=== PATIENT | female | born 1935 | race Caucasian/White ===

== ENCOUNTER 2021-09-06 23:24 | Inpatient (IN) | payer MEDICARE ==
[2021-09-06] MEDS ORDERED: fentaNYL 100 MCG/2 ML SDV IVPUSH ONE (23:43)
--- NOTE | 2021-09-06 23:47 | EDM.PDOC ---
ED HPI GENERAL MEDICAL PROBLEM - General Chief Complaint: Lower Extremity Injury/Pain Stated Complaint: FALL VIA NORTH Time Seen by Provider: 09/06/21 23:38 Source of Information: Reports: Patient, Family, RN Notes Reviewed History Limitations: Reports: No Limitations - History of Present Illness INITIAL COMMENTS - FREE TEXT/NARRATIVE: 86-year-old female presents emergency department day complaint of left hip pain, she injured herself when she fell at home. 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 Left Hip Pain Score (Numeric/FACES): 10 - Related Data Allergies Allergy/AdvReac Type Severity Reaction Status Date / Time No Known Allergies Allergy Verified 09/06/21 23:31 Home Meds: Home Meds Calcium Carbonate/Vitamin D3 [Oyster Shell 500-Vit D3 200 Tb] 1 tab PO DAILY 12/27/20 [History] Cholecalciferol (Vitamin D3) [Vitamin D] 1,000 unit PO DAILY 12/27/20 [History] Citalopram [Citalopram HBr] 10 mg PO DAILY 12/27/20 [History] Pravastatin Sodium 10 mg PO DAILY 12/27/20 [History] Multivitamin [Multi-Vitamin Daily] 1 each PO DAILY 09/06/21 [History] Past Medical History Cardiovascular History: Reports: High Cholesterol 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: Musculoskeletal History: Reports: Arthritis, Other (See Below) Other Musculoskeletal History: R knee pain/weakness Psychiatric History: Reports: Anxiety Oncologic (Cancer) History: Reports: Breast - Infectious Disease History Infectious Disease History: Reports: Chicken Pox, Measles - Past Surgical History Musculoskeletal Surgical History: Reports: None Social & Family History - Tobacco Use Tobacco Use Status *Q: Never Tobacco User Second Hand Smoke Exposure: No - Caffeine Use Caffeine Use: Reports: None - Recreational Drug Use Recreational Drug Use: Yes Review of Systems - Review of Systems Review Of Systems: See Below Musculoskeletal: Reports: Joint Pain ED EXAM, GENERAL - Physical Exam Exam: See Below Free Text/Narrative:: Shortened and externally rotated she will not tolerate any type of exam or palpation over this area without eliciting pain Exam Limited By: No Limitations General Appearance: Alert, WD/WN, No Apparent Distress Course - Vital Signs Last Recorded V/S: Last Vital Signs Temp 97.5 F 09/06/21 23:26 Pulse 55 L 09/07/21 05:46 Resp 15 09/07/21 05:46 BP 107/55 L 09/07/21 05:46 Pulse Ox 94 L 09/07/21 05:46 - Orders/Labs/Meds Orders: Active Orders 24 hr Category Date Time Status Med[place] Catheter Insertion [Insert Urinary Catheter] [OM. Care 09/07/21 00:30 Ordered PC] Q24H Urinary Catheter Assessment [RC] ASDIRECTED Care 09/07/21 00:28 Active Hip Min 2V or 3V Lt [CR] Stat Exams 09/06/21 23:44 Taken BASIC METABOLIC PANEL,BMP [CHEM] Urgent Lab 09/07/21 08:47 Ordered CBC WITH AUTO DIFF [HEME] Stat Lab 09/07/21 08:47 Ordered fentaNYL [Sublimaze] Med 09/07/21 00:27 Active 25 mcg IVPUSH Q1H PRN Medication Orders Fentanyl (Fentanyl 100 Mcg/2 Ml Sdv) 25 mcg IVPUSH Q1H PRN PRN Reason: Pain (severe 7-10) Last Admin: 09/07/21 01:13 Dose: 25 mcg Documented by: WINDY Labs: Laboratory Tests 09/07/21 Range/Units 00:23 SARS CoV-2 RNA Rapid FABY Negative Meds: Medications Generic Name Dose Route Start Last Admin Trade Name Freq PRN Reason Stop Dose Admin Fentanyl 25 mcg 09/07/21 00:27 09/07/21 01:13 Fentanyl 100 Mcg/2 Ml Sdv IVPUSH 25 mcg Q1H PRN Administration Pain (severe 7-10) Discontinued Medications Generic Name Dose Route Start Last Admin Trade Name Freq PRN Reason Stop Dose Admin Fentanyl 50 mcg 09/06/21 23:43 09/06/21 23:52 Fentanyl 100 Mcg/2 Ml Sdv IVPUSH 09/06/21 23:44 25 mcg ONETIME ONE Administration Lorazepam 0.25 mg 09/07/21 01:58 09/07/21 02:21 Lorazepam 2 Mg/Ml Sdv IVPUSH 09/07/21 01:59 0.25 mg ONETIME ONE Administration Departure - Departure Time of Disposition: 08:49 Disposition: Admitted As Inpatient 64 Condition: Fair Clinical Impression: Hip fracture, left Qualifiers: Encounter type: initial encounter Fracture type: closed Qualified Code(s): S72.002A - Fracture of unspecified part of neck of left femur, initial encounter for closed fracture - Discharge Information Referrals: PCP,None [Primary Care Provider] - Forms: ED Department Discharge Sepsis Event Note (ED) - Evaluation Sepsis Screening Result: No Definite Risk - Focused Exam Vital Signs: Vital Signs Temp Pulse Resp BP Pulse Ox 09/07/21 05:46 55 L 15 107/55 L 94 L 09/07/21 04:46 51 L 15 120/53 L 94 L 09/07/21 03:46 49 L 16 116/52 L 96 09/07/21 02:46 51 L 16 121/56 L 95 09/07/21 01:47 62 103/64 09/07/21 00:47 60 110/65 09/07/21 00:39 57 L 125/60 09/06/21 23:26 97.5 F 60 16 145/67 H 96 - My Orders Last 24 Hours: My Active Orders 09/06/21 23:44 Hip Min 2V or 3V Lt [CR] Stat 09/07/21 00:27 fentaNYL [Sublimaze] 25 mcg IVPUSH Q1H PRN 09/07/21 00:28 Urinary Catheter Assessment [RC] ASDIRECTED 09/07/21 00:30 Medina Catheter Insertion [Insert Urinary Catheter] [OM.PC] Q24H 09/07/21 08:47 BASIC METABOLIC PANEL,BMP [CHEM] Urgent CBC WITH AUTO DIFF [HEME] Stat - Assessment/Plan Last 24 Hours: My Active Orders 09/06/21 23:44 Hip Min 2V or 3V Lt [CR] Stat 09/07/21 00:27 fentaNYL [Sublimaze] 25 mcg IVPUSH Q1H PRN 09/07/21 00:28 Urinary Catheter Assessment [RC] ASDIRECTED 09/07/21 00:30 Medina Catheter Insertion [Insert Urinary Catheter] [OM.PC] Q24H 09/07/21 08:47 BASIC METABOLIC PANEL,BMP [CHEM] Urgent CBC WITH AUTO DIFF [HEME] Stat Plan: Assessment Acuity = acute Site and laterality = left hip fracture Etiology = secondary to fall Manifestations = none Location of injury = Home Lab values = x-ray describes a fracture above official read radiologist pending, CBC BMP also pending Covid was negative Plan Did attempt to transfer last night however was unsuccessful due to bed shortage is in the area discussed case with this morning we do have some bed openings later this afternoon he felt he would be able to repair this and she should should be able to stay here, she will be boarded in the emergency department till bed opens up This note was dictated using [employer] voice recognition software please call with any questions on syntax or grammar.
[2021-09-07] MEDS: fentaNYL 100 MCG/2 ML SDV IVPUSH PRN ×2 (01:13→14:05)
[2021-09-07] MEDS ORDERED: LORazepam 2 MG/ML SDV IVPUSH ONE (01:58)
--- NOTE | 2021-09-07 09:32 | CR ---
Hip Min 2V or 3V Lt CLINICAL HISTORY: Fall, pain FINDINGS: There is a displaced fracture of the femoral neck. IMPRESSION: Left femoral neck fracture post fall
--- NOTE | 2021-09-07 13:03 | PCM.HP.2 ---
H&P History of Present Illness - General Date of Service: 09/07/21 Admit Problem/Dx: Admission Diagnosis/Problem Admission Diagnosis/Problem Hip fracture requiring operative repair Source of Information: Patient History Limitations: Reports: No Limitations - History of Present Illness Initial Comments - Free Text/Narative: 86 year old female presented to the ED after a fall at home. She was unable to weight bear on the left leg and was found to have a fracture of the left femoral neck. She is in her usual state of health and stumbled. She reports no dizziness, no LOC and no other injuries. She has had some right knee pain which has been making it more difficult to walk lately. Onset of Symptoms: Reports: Sudden Location: Reports: Lower Extremity, Left Quality: Reports: Sharp, Stabbing Severity: Severe Improves with: Reports: Immobilization Worsens with: Reports: Movement Associated Symptoms: Reports: No Other Symptoms Left Hip Pain Score (Numeric/FACES): 10 - Related Data Allergies/Adverse Reactions: Allergies Allergy/AdvReac Type Severity Reaction Status Date / Time No Known Allergies Allergy Verified 09/06/21 23:31 Home Medications: Home Meds Calcium Carbonate/Vitamin D3 [Oyster Shell 500-Vit D3 200 Tb] 1 tab PO DAILY 12/27/20 [History] Cholecalciferol (Vitamin D3) [Vitamin D] 1,000 unit PO DAILY 12/27/20 [History] Citalopram [Citalopram HBr] 10 mg PO DAILY 12/27/20 [History] Pravastatin Sodium 10 mg PO DAILY 12/27/20 [History] Multivitamin [Multi-Vitamin Daily] 1 each PO DAILY 09/06/21 [History] Past Medical History 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: Musculoskeletal History: Reports: Arthritis, Other (See Below) Other Musculoskeletal History: R knee pain/weakness Psychiatric History: Reports: Anxiety Oncologic (Cancer) History: Reports: Breast - Infectious Disease History Infectious Disease History: Reports: Chicken Pox, Measles - Past Surgical History Musculoskeletal Surgical History: Reports: None Social & Family History - Tobacco Use Tobacco Use Status *Q: Never Tobacco User Second Hand Smoke Exposure: No - Caffeine Use Caffeine Use: Reports: None - Recreational Drug Use Recreational Drug Use: No H&P Review of Systems - Review of Systems: Review Of Systems: See Below General: Reports: No Symptoms HEENT: Reports: No Symptoms Pulmonary: Reports: No Symptoms Cardiovascular: Reports: No Symptoms Gastrointestinal: Reports: Diarrhea (chronic problem) Genitourinary: Reports: No Symptoms Musculoskeletal: Reports: Joint Pain (right knee) Skin: Reports: No Symptoms Psychiatric: Reports: No Symptoms Neurological: Reports: No Symptoms Hematologic/Lymphatic: Reports: No Symptoms Immunologic: Reports: No Symptoms Exam - Exam Exam: See Below - Vital Signs Vital Signs: Last Vital Signs Temp 36.4 C 09/06/21 23:26 Pulse 62 09/07/21 09:47 Resp 14 09/07/21 09:47 BP 115/60 09/07/21 09:47 Pulse Ox 95 09/07/21 09:47 Weight: 54.431 kg - Exam General: Alert, Oriented HEENT: PERRLA, Conjunctiva Clear, EACs Clear, EOMI, Hearing Intact, Mucosa Moist & Davidson, Nares Patent, Pupils Equal, Pupils Reactive Neck: Supple, Trachea Midline Lungs: Clear to Auscultation, Normal Respiratory Effort Cardiovascular: Regular Rate, Regular Rhythm GI/Abdominal Exam: Normal Bowel Sounds, Soft, Non-Tender, No Distention (Female) Exam: Deferred Rectal (Female) Exam: Deferred Back Exam: Normal Inspection Extremities: Leg Pain (left hip pain with motion) Skin: Warm, Dry, Intact Neurological: Cranial Nerves Intact Neuro Extensive - Mental Status: Alert, Oriented x3, Normal Mood/Affect, Normal Cognition, Memory Intact Neuro Extensive - Motor, Sensory, Reflexes: CN II-XII Intact Psychiatric: Alert, Normal Affect, Normal Mood - Patient Data Lab Results Last 24 hrs: Laboratory Results - last 24 hr 09/07/21 09/07/21 09/07/21 Range/Units 00:23 09:03 09:03 WBC 7.0 (4.5-11.0) K/uL RBC 4.31 (3.30-5.50) M/uL Hgb 13.5 (12.0-15.0) g/dL Hct 41.1 (36.0-48.0) % MCV 95 (80-98) fL MCH 31 (27-31) pg MCHC 33 (32-36) % Plt Count 161 (150-400) K/uL Neut % (Auto) 75.1 H (36-66) % Lymph % (Auto) 15.2 L (24-44) % [place] % (Auto) 9.2 H (2-6) % Eos % (Auto) 0.1 L (2-4) % Baso % (Auto) 0.4 (0-1) % Sodium 140 (140-148) mmol/L Potassium 4.2 (3.6-5.2) mmol/L Chloride 103 (100-108) mmol/L Carbon Dioxide 30 (21-32) mmol/L Anion Gap 7.4 (5.0-14.0) mmol/L BUN 14 (7-18) mg/dL Creatinine 0.7 (0.6-1.0) mg/dL Est Cr Clr Drug Dosing 47.74 mL/min Estimated GFR (MDRD) > 60 (>60) Glucose 102 (74-106) mg/dL Calcium 8.5 (8.5-10.1) mg/dL SARS CoV-2 RNA Rapid FABY Negative Result Diagrams: 09/07/21 09:03 09/07/21 09:03 Sepsis Event Note - Evaluation Sepsis Screening Result: No Definite Risk - Focused Exam Vital Signs: Vital Signs Pulse Resp BP Pulse Ox 09/07/21 09:47 62 14 115/60 95 09/07/21 05:46 55 L 15 107/55 L 94 L 09/07/21 04:46 51 L 15 120/53 L 94 L 09/07/21 03:46 49 L 16 116/52 L 96 09/07/21 02:46 51 L 16 121/56 L 95 09/07/21 01:47 62 103/64 - Problem List (1) Hip fracture, left SNOMED Code(s): 437676650, [id number] ICD Code: S72.002A - FRACTURE OF UNSP PART OF NECK OF LEFT FEMUR, INIT Status: Acute Current Visit: Yes Qualifiers: Encounter type: initial encounter Fracture type: closed Qualified Code(s): S72.002A - Fracture of unspecified part of neck of left femur, initial encounter for closed fracture (2) Osteoarthritis, knee SNOMED Code(s): 383811634 ICD Code: M17.10 - UNILATERAL PRIMARY OSTEOARTHRITIS, UNSPECIFIED KNEE Status: Acute Current Visit: No Qualifiers: Osteoarthritis type: primary Laterality: right Qualified Code(s): M17.11 - Unilateral primary osteoarthritis, right knee (3) Right knee pain SNOMED Code(s): 1890971566 ICD Code: M25.561 - PAIN IN RIGHT KNEE Status: Acute Current Visit: No Qualifiers: Chronicity: chronic Qualified Code(s): M25.561 - Pain in right knee; G89.29 - Other chronic pain Problem List Initiated/Reviewed/Updated: Yes Orders Last 24hrs: Active Orders 24 hr Category Date Time Status Admission Status [Patient Status] [ADT] Routine ADT 09/07/21 12:49 Ordered Medina Catheter Insertion [Insert Urinary Catheter] [OM. Care 09/07/21 00:30 Ordered PC] Q24H Notify Provider Consults [RC] ASDIRECTED Care 09/07/21 08:50 Active Urinary Catheter Assessment [RC] ASDIRECTED Care 09/07/21 00:28 Active Verify Patient Consent Obtain [RC] ASDIRECTED Care 09/07/21 09:29 Active Consult to Orthopedic Clinic [CONS] Routine Cons 09/07/21 08:49 Active Consult to Physician [CONS] Routine Cons 09/07/21 08:49 Ordered NPO Now [Nothing per Oral Now Diet] [DIET] Diet 09/07/21 Lunch Active ceFAZolin [Ancef] 1 gm Med 09/07/21 16:00 Active Premix Bag 1 bag IV ONETIME fentaNYL [Sublimaze] Med 09/07/21 00:27 Active 25 mcg IVPUSH Q1H PRN EKG 12 Lead [EK] Routine Ther 09/07/21 09:27 Ordered Medication Orders Fentanyl (Fentanyl 100 Mcg/2 Ml Sdv) 25 mcg IVPUSH Q1H PRN PRN Reason: Pain (severe 7-10) Last Admin: 09/07/21 01:13 Dose: 25 mcg Documented by: WINDY Cefazolin Sodium/Dextrose 1 gm (/ Premix) 50 mls @ 100 mls/hr IV ONETIME ONE Stop: 09/07/21 16:29 Assessment/Plan Comment:: Plan admission for hemiarthroplasty of the left hip today. Anticipate at least 3 day hospital stay with probable discharge to a SNF. Surgical procedure discussed with the patient and she is in agreement with the plan. - Mortality Measure Prognosis:: Good
[2021-09-07] MEDS ORDERED: Povidone-Iodine 10% Soln 118.25 ML Bottle ONE (13:23)
[2021-09-07] MEDS ORDERED: Propofol 200 MG/20 ML SDV ONE (16:00)
[2021-09-07] MEDS ORDERED: fentaNYL 100 MCG/2 ML SDV ONE (16:00)
[2021-09-07] MEDS ORDERED: ceFAZolin 1 GM in Premix Bag 1 BAG IV ONE (16:00)
[2021-09-07] MEDS ORDERED: Midazolam 1 MG/ML 2 ML SDV ONE (16:00)
[2021-09-07] MEDS ORDERED: ePHEDrine 50 MG/ML SDV ONE (16:33)
[2021-09-07] MEDS ORDERED: Lactated Ringers 1,000 ML ONE (16:42)
[2021-09-07] MEDS ORDERED: Ondansetron 4 MG/2 ML SDV IVPUSH PRN (17:37)
[2021-09-07] MEDS ORDERED: traMADol 50 MG Tab PO PRN (17:37)
[2021-09-07] MEDS ORDERED: Magnesium Hydroxide 400 MG/5 ML Susp 30 ML Cup PO PRN (17:37)
[2021-09-07] MEDS ORDERED: oxyCODONE 5 MG Tab PO PRN (17:41)
[2021-09-07] MEDS ORDERED: HYDROmorphone 0.5 MG/0.5 ML Syringe IVPUSH PRN (17:42)
[2021-09-07] MEDS ORDERED: Metoclopramide 10 MG Tab PO PRN (17:56)
[2021-09-07] MEDS: Ketorolac 30 MG/ML SDV IVPUSH SCH (18:21)
[2021-09-07] MEDS: Acetaminophen 325 MG Tab PO SCH (18:22)
[2021-09-07] MEDS: Nozin Nasal Sanitizer NASBOTH SCH (20:51)
[2021-09-07] MEDS: Docusate Sodium 100 MG Cap PO SCH (20:51)
[2021-09-07] MEDS: Sodium Chloride 0.9% 1,000 ML IV SCH (22:51)
[2021-09-08] MEDS ORDERED: ceFAZolin 1 GM in Sodium Chloride 0.9% 50 ML IV SCH ×2
[2021-09-08] MEDS: Ketorolac 30 MG/ML SDV IVPUSH SCH (00:11)
[2021-09-08] MEDS: Acetaminophen 325 MG Tab PO SCH ×5 (00:15→22:49)
[2021-09-08] MEDS: Sodium Chloride 0.9% 1,000 ML IV SCH ×2 (07:07→15:49)
[2021-09-08] MEDS: Celecoxib 200 MG Cap PO SCH ×2 (08:04→21:53)
[2021-09-08] MEDS: Citalopram 10 MG Tab PO SCH (08:04)
[2021-09-08] MEDS: Enoxaparin 30 MG/0.3 ML Syringe SUBCUT SCH (08:04)
[2021-09-08] MEDS: Docusate Sodium 100 MG Cap PO SCH ×4 (08:04→21:53)
[2021-09-08] MEDS: Pravastatin 20 MG Tab PO SCH (08:04)
[2021-09-08] MEDS: ceFAZolin 1 GM in Premix Bag 1 BAG IV SCH ×2 (08:20→15:49)
--- NOTE | 2021-09-08 09:27 | CR ---
Pelvis 1V or 2V CLINICAL HISTORY: Postop left hemiarthroplasty FINDINGS: Patient has had placement the of a left hemiarthroplasty following femoral neck fracture. Components appear well seated
--- NOTE | 2021-09-08 09:29 | PCM.SURGPN ---
- General Info Date of Service: 09/08/21 Date of Surgery/Procedure: 09/07/21 POD#: 1 Post-Op Diagnosis: left femoral neck fracture Admission Diagnosis/Problem: Hip fracture requiring operative repair Functional Status: Reports: Pain Controlled, Tolerating Diet - Review of Systems General: Denies: Fever, Fatigue, Chills HEENT: Denies: Visual Changes Pulmonary: Denies: Shortness of Breath Cardiovascular: Denies: Chest Pain Gastrointestinal: Denies: Nausea, Vomiting Musculoskeletal: Reports: Leg Pain (left ), Joint Pain (left hip ) Skin: Reports: Bruising Neurological: Reports: No Symptoms Psychiatric: Reports: No Symptoms - Patient Data Vitals - Most Recent: Last Vital Signs Temp 98.7 F 09/08/21 06:57 Pulse 62 09/08/21 06:57 Resp 18 09/08/21 06:57 BP 118/58 L 09/08/21 06:57 Pulse Ox 99 09/08/21 06:57 Weight - Most Recent: 119 lb 0.794 oz I&O - Last 24 Hours: Intake & Output 09/07/21 09/08/21 09/08/21 22:59 06:59 14:59 Intake Total 1425 600 Output Total 850 200 Balance -850 1225 600 Lab Results Last 24 Hrs: Laboratory Results - last 24 hr 09/08/21 Range/Units 05:45 WBC 6.8 (4.5-11.0) K/uL RBC 3.63 (3.30-5.50) M/uL Hgb 11.2 L D (12.0-15.0) g/dL Hct 35.6 L (36.0-48.0) % MCV 98 (80-98) fL MCH 31 (27-31) pg MCHC 32 (32-36) % Plt Count 122 L (150-400) K/uL Med Orders - Current: Current Medications Acetaminophen (Acetaminophen 325 Mg Tab) 650 mg PO Q6H [facility] Last Admin: 09/08/21 04:58 Dose: Not Given Documented by: Bandage/Support Products (Nozin Nasal Plaque Maker) 1 applic NASBOTH BID [facility] Stop: 09/14/21 21:01 Last Admin: 09/07/21 20:51 Dose: Not Given Documented by: Celecoxib (Celecoxib 200 Mg Cap) 200 mg PO BID [facility] Last Admin: 09/08/21 08:04 Dose: 200 mg Documented by: Citalopram Hydrobromide (Citalopram 10 Mg Tab) 10 mg PO DAILY [facility] Last Admin: 09/08/21 08:04 Dose: 10 mg Documented by: Docusate Sodium (Docusate Sodium 100 Mg Cap) 100 mg PO BID [facility] Last Admin: 09/08/21 08:22 Dose: 100 mg Documented by: Enoxaparin Sodium (Enoxaparin 30 Mg/0.3 Ml Syringe) 30 mg SUBCUT DAILY [facility] Last Admin: 09/08/21 08:04 Dose: 30 mg Documented by: Fentanyl (Fentanyl 100 Mcg/2 Ml Sdv) 25 mcg IVPUSH Q1H PRN PRN Reason: Pain (severe 7-10) Last Admin: 09/07/21 14:05 Dose: 25 mcg Documented by: Hydromorphone HCl (Hydromorphone 0.5 Mg/0.5 Ml Syringe) 0.5 mg IVPUSH Q2H PRN PRN Reason: Breakthrough Pain Sodium Chloride (Normal Saline) 1,000 mls @ 125 mls/hr IV ASDIRECTED [facility] Last Admin: 09/08/21 07:07 Dose: 125 mls/hr Documented by: Cefazolin Sodium/Dextrose 1 gm (/ Premix) 50 mls @ 200 mls/hr IV Q8H [facility] Stop: 09/08/21 16:14 Last Admin: 09/08/21 08:20 Dose: 200 mls/hr Documented by: Magnesium Hydroxide (Magnesium Hydroxide 400 Mg/5 Ml Susp 30 Ml Cup) 30 ml PO Q6H PRN PRN Reason: Stool Softener Metoclopramide HCl (Metoclopramide 10 Mg Tab) 10 mg PO Q6H PRN PRN Reason: Nausea/Vomiting Ondansetron HCl (Ondansetron 4 Mg/2 Ml Sdv) 4 mg IVPUSH Q6H PRN PRN Reason: Nausea/Vomiting Oxycodone HCl (Oxycodone 5 Mg Tab) 5 - 10 mg PO Q4H PRN PRN Reason: Pain Last Admin: 09/07/21 19:22 Dose: 5 mg Documented by: Pravastatin Sodium (Pravastatin 20 Mg Tab) 10 mg PO DAILY [facility] Last Admin: 09/08/21 08:04 Dose: 10 mg Documented by: Tramadol HCl (Tramadol 50 Mg Tab) 50 mg PO Q6H PRN PRN Reason: Pain (mild 1-3) Discontinued Medications Ephedrine Sulfate (Ephedrine 50 Mg/Ml Sdv) Confirm Administered Dose 50 mg .ROUTE .STK-MED ONE Stop: 09/07/21 16:34 Fentanyl (Fentanyl 100 Mcg/2 Ml Sdv) 50 mcg IVPUSH ONETIME ONE Stop: 09/06/21 23:44 Last Admin: 09/06/21 23:52 Dose: 25 mcg Documented by: Fentanyl (Fentanyl 100 Mcg/2 Ml Sdv) Confirm Administered Dose 100 mcg .ROUTE .STK-MED ONE Stop: 09/07/21 16:01 Cefazolin Sodium/Dextrose 1 gm (/ Premix) 50 mls @ 100 mls/hr IV ONETIME ONE Stop: 09/07/21 16:29 Last Admin: 09/07/21 16:09 Dose: 100 mls/hr Documented by: Lactated Ringer's (Ringers, Lactated) Confirm Administered Dose 1,000 mls @ as directed .ROUTE .STK-MED ONE Stop: 09/07/21 16:43 Cefazolin Sodium 1 gm/ Sodium (Chloride) 50 mls @ 200 mls/hr IV Q8H [facility] Stop: 09/08/21 16:14 Last Admin: 09/08/21 00:15 Dose: 200 mls/hr Documented by: Ketorolac Tromethamine (Ketorolac 30 Mg/Ml Sdv) 15 mg IVPUSH Q6H [facility] Stop: 09/07/21 23:46 Last Admin: 09/08/21 00:11 Dose: 15 mg Documented by: Lorazepam (Lorazepam 2 Mg/Ml Sdv) 0.25 mg IVPUSH ONETIME ONE Stop: 09/07/21 01:59 Last Admin: 09/07/21 02:21 Dose: 0.25 mg Documented by: Midazolam HCl (Midazolam 1 Mg/Ml 2 Ml Sdv) Confirm Administered Dose 2 mg .ROUTE .STK-MED ONE Stop: 09/07/21 16:01 Povidone Iodine (Povidone-Iodine 10% Soln 118.25 Ml Bottle) Confirm Administered Dose 1 ml .ROUTE .STK-MED ONE Stop: 09/07/21 13:24 Propofol (Propofol 200 Mg/20 Ml Sdv) Confirm Administered Dose 200 mg .ROUTE .STK-MED ONE Stop: 09/07/21 16:01 - Exam Wound/Incisions: Healing Well, Dressing Dry and Intact Quality Assessment: Urine Catheter, DVT Prophylaxis General: Alert, Oriented, Cooperative, No Acute Distress Extremities: Normal Capillary Refill, Pedal Edema (per baseline ), Leg Pain (left ), Limited Range of Motion (left hip due to postoperative pain ), Increased Warmth. No: Diego's Sign Skin: Dry, Intact Neurological: No New Focal Deficit Psy/Mental Status: Alert, Normal Affect, Normal Mood Sepsis Event Note - Evaluation Sepsis Screening Result: No Definite Risk - Focused Exam Vital Signs: Vital Signs Temp Pulse Resp BP Pulse Ox 09/08/21 06:57 98.7 F 62 18 118/58 L 99 09/08/21 00:30 97.8 F 64 18 105/52 L 96 09/07/21 22:10 58 L 18 93/35 L 96 09/07/21 21:33 94 L - Problem List & Annotations (1) Status post hip hemiarthroplasty SNOMED Code(s): 234001023, 509283185, 760882247, 294902578 Code(s): Z96.649 - PRESENCE OF UNSPECIFIED ARTIFICIAL HIP JOINT Status: Acute Current Visit: Yes (2) Postoperative anemia SNOMED Code(s): 134220917, 464299297 Code(s): D64.9 - ANEMIA, UNSPECIFIED Status: Acute Current Visit: Yes - Problem List Review Problem List Initiated/Reviewed/Updated: Yes - My Orders Last 24 Hours: Active Orders 24 hr Category Date Time Status Admission Status [Patient Status] [ADT] Routine ADT 09/07/21 12:49 Active Ambulate [RC] PER UNIT ROUTINE Care 09/07/21 17:37 Active Antiembolic Devices [RC] .Routine Care 09/07/21 17:37 Active Head of Bed Elevation [RC] ASDIRECTED Care 09/07/21 17:37 Active Intake and Output [RC] PER UNIT ROUTINE Care 09/07/21 17:37 Active Neurovascular Check [RC] BID Care 09/07/21 17:37 Active Notify Provider Consults [RC] ASDIRECTED Care 09/07/21 08:50 Active Notify Provider Intake and Out [RC] ASDIRECTED Care 09/07/21 17:37 Active Notify Provider Vital Signs [RC] ASDIRECTED Care 09/07/21 17:37 Active Oxygen Therapy [RC] PRN Care 09/07/21 17:37 Active Pneumonia Education [RC] UPON Care 09/07/21 17:37 Active Pulse Oximetry [RC] INTERMITTENT Care 09/07/21 17:37 Active RT Incentive Spirometry [RC] Q1HWA Care 09/07/21 17:37 Active Up to Chair [RC] QID Care 09/07/21 17:37 Active VTE/DVT Education [RC] Click to Edit Care 09/07/21 17:37 Active Verify Patient Consent Obtain [RC] ASDIRECTED Care 09/07/21 09:29 Active Vital Signs [RC] PER UNIT ROUTINE Care 09/07/21 17:37 Active Wound Care [RC] Q12H Care 09/07/21 17:37 Active Consult to Case Management/Floors Buffer [CONS] Cons 09/07/21 17:37 Active Routine Consult to Orthopedic Clinic [CONS] Routine Cons 09/07/21 08:49 Active Consult to Physician [CONS] Routine Cons 09/07/21 08:49 Ordered OT Evaluation and Treatment [CONS] Routine Cons 09/07/21 17:40 Active PT Evaluation and Treatment [CONS] Routine Cons 09/07/21 17:37 Active Regular Diet [DIET] Diet 09/07/21 Dinner Active Pelvis 1V or 2V [CR] Routine Exams 09/07/21 17:35 Taken Acetaminophen [TylenoL] Med 09/07/21 17:45 Active 650 mg PO Q6H Celecoxib [CeleBREX] Med 09/08/21 09:00 Active 200 mg PO BID Citalopram [Celexa] Med 09/08/21 09:00 Active 10 mg PO DAILY Docusate Sodium [Colace] Med 09/07/21 21:00 Active 100 mg PO BID Enoxaparin [Lovenox] Med 09/08/21 09:00 Active 30 mg SUBCUT DAILY HYDROmorphone [Dilaudid] Med 09/07/21 17:42 Active 0.5 mg IVPUSH Q2H PRN Magnesium Hydroxide [Milk of Magnesia] Med 09/07/21 17:37 Active 30 ml PO Q6H PRN Metoclopramide [Reglan] Med 09/07/21 17:56 Active 10 mg PO Q6H PRN Nozin [ Nasal Plaque Maker] Med 09/07/21 21:00 Active 1 applic NASBOTH BID Ondansetron [Zofran] Med 09/07/21 17:37 Active 4 mg IVPUSH Q6H PRN Pravastatin [Pravachol] Med 09/08/21 09:00 Active 10 mg PO DAILY Sodium Chloride 0.9% [Normal Saline] 1,000 ml Med 09/07/21 17:45 Active IV ASDIRECTED ceFAZolin [Ancef] 1 gm Med 09/08/21 08:00 Active Premix Bag 1 bag IV Q8H oxyCODONE Med 09/07/21 17:41 Active 5 - 10 mg PO Q4H PRN traMADol [Ultram] Med 09/07/21 17:37 Active 50 mg PO Q6H PRN Antiembolic Hose [OM.PC] Per Unit Routine Oth 09/07/21 17:37 Ordered DME for Inpatients [OM.PC] Routine Oth 09/07/21 17:37 Ordered DVT/VTE Prophylaxis Reflex [OM.PC] Routine Oth 09/07/21 17:37 Ordered Ice Therapy [OM.PC] Per Unit Routine Oth 09/07/21 17:37 Ordered Oral Care [OM.PC] Routine Oth 09/07/21 17:37 Ordered Sequential Compression Device [OM.PC] Routine Oth 09/07/21 17:37 Ordered Weight bearing status [OM.PC] Routine Oth 09/07/21 17:37 Ordered EKG 12 Lead [EK] Routine Ther 09/07/21 09:27 Ordered Medication Orders Acetaminophen (Acetaminophen 325 Mg Tab) 650 mg PO Q6H [facility] Last Admin: 09/08/21 04:58 Dose: Not Given Documented by: Admin: 09/08/21 00:15 Dose: 650 mg Documented by: Admin: 09/07/21 18:22 Dose: 650 mg Documented by: CHATA Bandage/Support Products (Nozin Nasal Plaque Maker) 1 applic NASBOTH BID [facility] Stop: 09/14/21 21:01 Last Admin: 09/07/21 20:51 Dose: Not Given Documented by: MELISSA Celecoxib (Celecoxib 200 Mg Cap) 200 mg PO BID [facility] Last Admin: 09/08/21 08:04 Dose: 200 mg Documented by: ENID Citalopram Hydrobromide (Citalopram 10 Mg Tab) 10 mg PO DAILY [facility] Last Admin: 09/08/21 08:04 Dose: 10 mg Documented by: ENID Docusate Sodium (Docusate Sodium 100 Mg Cap) 100 mg PO BID [facility] Last Admin: 09/08/21 08:22 Dose: 100 mg Documented by: Admin: 09/07/21 20:51 Dose: Not Given Documented by: MELISSA Enoxaparin Sodium (Enoxaparin 30 Mg/0.3 Ml Syringe) 30 mg SUBCUT DAILY [facility] Last Admin: 09/08/21 08:04 Dose: 30 mg Documented by: ENID Fentanyl (Fentanyl 100 Mcg/2 Ml Sdv) 25 mcg IVPUSH Q1H PRN PRN Reason: Pain (severe 7-10) Last Admin: 09/07/21 14:05 Dose: 25 mcg Documented by: Admin: 09/07/21 01:13 Dose: 25 mcg Documented by: WINDY Hydromorphone HCl (Hydromorphone 0.5 Mg/0.5 Ml Syringe) 0.5 mg IVPUSH Q2H PRN PRN Reason: Breakthrough Pain Sodium Chloride (Normal Saline) 1,000 mls @ 125 mls/hr IV ASDIRECTED [facility] Last Admin: 09/08/21 07:07 Dose: 125 mls/hr Documented by: Infusion: 09/08/21 06:51 Dose: 125 mls/hr Documented by: Admin: 09/07/21 22:51 Dose: 125 mls/hr Documented by: MELISSA Cefazolin Sodium/Dextrose 1 gm (/ Premix) 50 mls @ 200 mls/hr IV Q8H [facility] Stop: 09/08/21 16:14 Last Admin: 09/08/21 08:20 Dose: 200 mls/hr Documented by: EN[place] Magnesium Hydroxide (Magnesium Hydroxide 400 Mg/5 Ml Susp 30 Ml Cup) 30 ml PO Q6H PRN PRN Reason: Stool Softener Metoclopramide HCl (Metoclopramide 10 Mg Tab) 10 mg PO Q6H PRN PRN Reason: Nausea/Vomiting Ondansetron HCl (Ondansetron 4 Mg/2 Ml Sdv) 4 mg IVPUSH Q6H PRN PRN Reason: Nausea/Vomiting Oxycodone HCl (Oxycodone 5 Mg Tab) 5 - 10 mg PO Q4H PRN PRN Reason: Pain Last Admin: 09/07/21 19:22 Dose: 5 mg Documented by: MELISSA Pravastatin Sodium (Pravastatin 20 Mg Tab) 10 mg PO DAILY [facility] Last Admin: 09/08/21 08:04 Dose: 10 mg Documented by: [facility] Tramadol HCl (Tramadol 50 Mg Tab) 50 mg PO Q6H PRN PRN Reason: Pain (mild 1-3) - Assessment Assessment (Free Text/Narrative):: Patient is a pleasant 86-year-old female, status post left hip hemiarthroplasty, postop day #1. Patient tolerated surgery very well with no complications. Patient has remained hemodynamically stable in the postoperative period thus far, did have some hypotensive readings overnight, but these have been improving this morning. No acute events overnight. Left hip dressing did have some drainage overnight. Nursing staff did perform a dressing change. Dried drainage visible, no active drainage at this time. Postoperative day #1 hemoglobin has declined to 11.2. Patient has been fairly asymptomatic with this; denied lightheadedness with positional changes or transfer from bed to chair, also denied vision changes, dyspnea, chest pain this morning. Patient has transferred from bed to chair with a x2 assist and four-wheel walker. Has not ambulated further than a few steps with transfer from bed to chair. Pain well controlled at rest, increased with weightbearing on left lower extremity as to be expected. Patient denied calf pain, paresthesias to left lower extremity this morning. Patient has been tolerating regular diet well, no nausea or emesis. Patient requires inpatient status at this time for postoperative anemia monitoring in addition to further physical therapy services to progress functional mobility of left lower extremity. Plan: * Anticipate participation in physical and occupational therapy services daily while in the hospital. * Continue with every 4 hours vital monitoring assessment. * Postoperative anemia stable at this time; we will recheck a CBC if patient does become symptomatic. * Continue with current pain regimen. * Anticipate removal of [place] catheter this afternoon pending ambulation abilities with physical therapy. * Continue with 30 mg Lovenox subcutaneous daily for DVT/VTE prophylaxis. Bilateral lower extremity SCDs for mechanical DVT/VTE prophylaxis. * Anticipate dressing change on postop day #2 by orthopedic provider. * Anticipate patient will benefit from shelter facility placement for additional rehab services to progress functional mobility of left lower extremity to be safe for discharge to home. [employer] [facility] [employer] is aware and looking for placement for patient.
[2021-09-08] MEDS: Nozin Nasal Sanitizer NASBOTH SCH ×2 (10:37→21:53)
--- NOTE | 2021-09-08 14:46 | PCM.EKG ---
#1 Interpretation EKG Date: 09/07/21 Time: 11:10 Rhythm: NSR Rate (Beats/Min): 64 [place]: Normal P-Wave: Present QRS: Normal ST-T: Normal QT: Normal Comparison: NA - No Prior EKG EKG Interpretation Comments: Normal EKG
[2021-09-09] MEDS: Acetaminophen 325 MG Tab PO SCH ×4 (06:11→23:26)
--- NOTE | 2021-09-09 08:43 | PCM.SURGPN ---
- General Info Date of Service: 09/09/21 Date of Surgery/Procedure: 09/07/21 POD#: 2 Post-Op Diagnosis: left femoral neck fracture Admission Diagnosis/Problem: Hip fracture requiring operative repair Functional Status: Reports: Pain Controlled, Tolerating Diet, Ambulating (with FWW, x1 assist ), Urinating - Review of Systems General: Denies: Fever, Fatigue, Chills Pulmonary: Denies: Shortness of Breath Cardiovascular: Denies: Chest Pain, Lightheadedness Gastrointestinal: Denies: Nausea, Vomiting Genitourinary: Denies: Urgency Musculoskeletal: Reports: Leg Pain (left ), Joint Pain (left hip, right knee ) Skin: Reports: Bruising (left hip ) Neurological: Reports: No Symptoms Psychiatric: Reports: No Symptoms - Patient Data Vitals - Most Recent: Last Vital Signs Temp 98.7 F 09/09/21 07:00 Pulse 64 09/09/21 07:00 Resp 15 09/09/21 07:00 BP 114/63 09/09/21 07:00 Pulse Ox 95 09/09/21 07:00 Weight - Most Recent: 119 lb 0.794 oz I&O - Last 24 Hours: Intake & Output 09/08/21 09/09/21 09/09/21 22:59 06:59 14:59 Intake Total 1590 Output Total 800 600 Balance 790 -600 Med Orders - Current: Current Medications Acetaminophen (Acetaminophen 325 Mg Tab) 650 mg PO Q6H [facility] Last Admin: 09/09/21 06:11 Dose: 650 mg Documented by: Bandage/Support Products (Nozin Nasal Body Painter) 1 applic NASBOTH BID [facility] Stop: 09/14/21 21:01 Last Admin: 09/08/21 21:53 Dose: 1 applic Documented by: Celecoxib (Celecoxib 200 Mg Cap) 200 mg PO BID [facility] Last Admin: 09/08/21 21:53 Dose: 200 mg Documented by: Citalopram Hydrobromide (Citalopram 10 Mg Tab) 10 mg PO DAILY [facility] Last Admin: 09/08/21 08:04 Dose: 10 mg Documented by: Docusate Sodium (Docusate Sodium 100 Mg Cap) 100 mg PO BID [facility] Last Admin: 09/08/21 21:53 Dose: 100 mg Documented by: Enoxaparin Sodium (Enoxaparin 30 Mg/0.3 Ml Syringe) 30 mg SUBCUT DAILY [facility] Last Admin: 09/08/21 08:04 Dose: 30 mg Documented by: Sodium Chloride (Normal Saline) 1,000 mls @ 125 mls/hr IV ASDIRECTED [facility] Last Admin: 09/08/21 15:49 Dose: 125 mls/hr Documented by: Magnesium Hydroxide (Magnesium Hydroxide 400 Mg/5 Ml Susp 30 Ml Cup) 30 ml PO Q6H PRN PRN Reason: Stool Softener Metoclopramide HCl (Metoclopramide 10 Mg Tab) 10 mg PO Q6H PRN PRN Reason: Nausea/Vomiting Ondansetron HCl (Ondansetron 4 Mg/2 Ml Sdv) 4 mg IVPUSH Q6H PRN PRN Reason: Nausea/Vomiting Oxycodone HCl (Oxycodone 5 Mg Tab) 5 - 10 mg PO Q4H PRN PRN Reason: Pain Last Admin: 09/07/21 19:22 Dose: 5 mg Documented by: Pravastatin Sodium (Pravastatin 20 Mg Tab) 10 mg PO DAILY [facility] Last Admin: 09/08/21 08:04 Dose: 10 mg Documented by: Tramadol HCl (Tramadol 50 Mg Tab) 50 mg PO Q6H PRN PRN Reason: Pain (mild 1-3) Discontinued Medications Ephedrine Sulfate (Ephedrine 50 Mg/Ml Sdv) Confirm Administered Dose 50 mg .ROUTE .STK-MED ONE Stop: 09/07/21 16:34 Fentanyl (Fentanyl 100 Mcg/2 Ml Sdv) 50 mcg IVPUSH ONETIME ONE Stop: 09/06/21 23:44 Last Admin: 09/06/21 23:52 Dose: 25 mcg Documented by: Fentanyl (Fentanyl 100 Mcg/2 Ml Sdv) 25 mcg IVPUSH Q1H PRN PRN Reason: Pain (severe 7-10) Last Admin: 09/07/21 14:05 Dose: 25 mcg Documented by: Fentanyl (Fentanyl 100 Mcg/2 Ml Sdv) Confirm Administered Dose 100 mcg .ROUTE .STK-MED ONE Stop: 09/07/21 16:01 Hydromorphone HCl (Hydromorphone 0.5 Mg/0.5 Ml Syringe) 0.5 mg IVPUSH Q2H PRN PRN Reason: Breakthrough Pain Cefazolin Sodium/Dextrose 1 gm (/ Premix) 50 mls @ 100 mls/hr IV ONETIME ONE Stop: 09/07/21 16:29 Last Admin: 09/07/21 16:09 Dose: 100 mls/hr Documented by: Lactated Ringer's (Ringers, Lactated) Confirm Administered Dose 1,000 mls @ as directed .ROUTE .STK-MED ONE Stop: 09/07/21 16:43 Cefazolin Sodium 1 gm/ Sodium (Chloride) 50 mls @ 200 mls/hr IV Q8H [facility] Stop: 09/08/21 16:14 Last Admin: 09/08/21 00:15 Dose: 200 mls/hr Documented by: Cefazolin Sodium/Dextrose 1 gm (/ Premix) 50 mls @ 200 mls/hr IV Q8H [facility] Stop: 09/08/21 16:14 Last Admin: 09/08/21 15:49 Dose: 200 mls/hr Documented by: Ketorolac Tromethamine (Ketorolac 30 Mg/Ml Sdv) 15 mg IVPUSH Q6H [facility] Stop: 09/07/21 23:46 Last Admin: 09/08/21 00:11 Dose: 15 mg Documented by: Lorazepam (Lorazepam 2 Mg/Ml Sdv) 0.25 mg IVPUSH ONETIME ONE Stop: 09/07/21 01:59 Last Admin: 09/07/21 02:21 Dose: 0.25 mg Documented by: Midazolam HCl (Midazolam 1 Mg/Ml 2 Ml Sdv) Confirm Administered Dose 2 mg .ROUTE .STK-MED ONE Stop: 09/07/21 16:01 Povidone Iodine (Povidone-Iodine 10% Soln 118.25 Ml Bottle) Confirm Administered Dose 1 ml .ROUTE .STK-MED ONE Stop: 09/07/21 13:24 Propofol (Propofol 200 Mg/20 Ml Sdv) Confirm Administered Dose 200 mg .ROUTE .STK-MED ONE Stop: 09/07/21 16:01 - Exam Wound/Incisions: Healing Well, Dressing Dry and Intact, Drainage (dried drainage on dressing ) Quality Assessment: DVT Prophylaxis General: Alert, Oriented, Cooperative, No Acute Distress Extremities: Normal Capillary Refill, Pedal Edema (per baseline ), Joint Swelling (diffuse over left hip, extending into leftleg ), Leg Pain (left ). No: Diego's Sign Skin: Warm, Dry, Intact, Ecchymosis (ecchymosis present along left hip, extending into thigh) Neurological: No New Focal Deficit Psy/Mental Status: Alert, Normal Affect, Normal Mood Sepsis Event Note - Evaluation Sepsis Screening Result: No Definite Risk - Focused Exam Vital Signs: Vital Signs Temp Pulse Resp BP Pulse Ox 09/09/21 07:00 98.7 F 64 15 114/63 95 09/09/21 03:29 99.1 F 71 18 116/64 93 L 09/08/21 22:50 99.3 F 71 18 141/67 H 95 - Problem List & Annotations (1) Status post hip hemiarthroplasty SNOMED Code(s): 890106946, 982493781, 967871605, 652914547 Code(s): Z96.649 - PRESENCE OF UNSPECIFIED ARTIFICIAL HIP JOINT Status: Acute Current Visit: Yes (2) Postoperative anemia SNOMED Code(s): 533047002, 346957102 Code(s): D64.9 - ANEMIA, UNSPECIFIED Status: Acute Current Visit: Yes - Problem List Review Problem List Initiated/Reviewed/Updated: Yes - My Orders Last 24 Hours: Active Orders 24 hr Category Date Time Status Admission Status [Patient Status] [ADT] Routine ADT 09/08/21 09:29 Active Celecoxib [CeleBREX] Med 09/08/21 09:00 Active 200 mg PO BID Citalopram [Celexa] Med 09/08/21 09:00 Active 10 mg PO DAILY Enoxaparin [Lovenox] Med 09/08/21 09:00 Active 30 mg SUBCUT DAILY Pravastatin [Pravachol] Med 09/08/21 09:00 Active 10 mg PO DAILY Convert IV to Saline Lock [OM.PC] Routine Oth 09/08/21 16:54 Ordered Medication Orders Acetaminophen (Acetaminophen 325 Mg Tab) 650 mg PO Q6H [facility] Admin: 09/09/21 06:11 Dose: 650 mg Documented by: Admin: 09/08/21 22:49 Dose: Not Given Documented by: Admin: 09/08/21 17:08 Dose: 650 mg Documented by: Admin: 09/08/21 10:45 Dose: 650 mg Documented by: Admin: 09/08/21 04:58 Dose: Not Given Documented by: Admin: 09/08/21 00:15 Dose: 650 mg Documented by: Admin: 09/07/21 18:22 Dose: 650 mg Documented by: CHATA Bandage/Support Products (Nozin Nasal Body Painter) 1 applic NASBOTH BID [facility] Stop: 09/14/21 21:01 Last Admin: 09/08/21 21:53 Dose: 1 applic Documented by: Admin: 09/08/21 10:37 Dose: 1 applic Documented by: Admin: 09/07/21 20:51 Dose: Not Given Documented by: MELISSA Celecoxib (Celecoxib 200 Mg Cap) 200 mg PO BID [facility] Last Admin: 09/08/21 21:53 Dose: 200 mg Documented by: Admin: 09/08/21 08:04 Dose: 200 mg Documented by: ENID Citalopram Hydrobromide (Citalopram 10 Mg Tab) 10 mg PO DAILY [facility] Last Admin: 09/08/21 08:04 Dose: 10 mg Documented by: ENID Docusate Sodium (Docusate Sodium 100 Mg Cap) 100 mg PO BID [facility] Last Admin: 09/08/21 21:53 Dose: 100 mg Documented by: Admin: 09/08/21 08:22 Dose: 100 mg Documented by: Admin: 09/07/21 20:51 Dose: Not Given Documented by: MELISSA Enoxaparin Sodium (Enoxaparin 30 Mg/0.3 Ml Syringe) 30 mg SUBCUT DAILY [facility] Last Admin: 09/08/21 08:04 Dose: 30 mg Documented by: ENID Sodium Chloride (Normal Saline) 1,000 mls @ 125 mls/hr IV ASDIRECTED [facility] Last Admin: 09/08/21 15:49 Dose: 125 mls/hr Documented by: Infusion: 09/08/21 15:07 Dose: 125 mls/hr Documented by: Admin: 09/08/21 07:07 Dose: 125 mls/hr Documented by: Infusion: 09/08/21 06:51 Dose: 125 mls/hr Documented by: Admin: 09/07/21 22:51 Dose: 125 mls/hr Documented by: MELISSA Magnesium Hydroxide (Magnesium Hydroxide 400 Mg/5 Ml Susp 30 Ml Cup) 30 ml PO Q6H PRN PRN Reason: Stool Softener Metoclopramide HCl (Metoclopramide 10 Mg Tab) 10 mg PO Q6H PRN PRN Reason: Nausea/Vomiting Ondansetron HCl (Ondansetron 4 Mg/2 Ml Sdv) 4 mg IVPUSH Q6H PRN PRN Reason: Nausea/Vomiting Oxycodone HCl (Oxycodone 5 Mg Tab) 5 - 10 mg PO Q4H PRN PRN Reason: Pain Last Admin: 09/07/21 19:22 Dose: 5 mg Documented by: MELISSA Pravastatin Sodium (Pravastatin 20 Mg Tab) 10 mg PO DAILY [facility] Last Admin: 09/08/21 08:04 Dose: 10 mg Documented by: ENID Tramadol HCl (Tramadol 50 Mg Tab) 50 mg PO Q6H PRN PRN Reason: Pain (mild 1-3) - Assessment Assessment (Free Text/Narrative):: Patient is a pleasant 86-year-old female, status post left hip hemiarthroplasty, postop day #2. Patient has remained hemodynamically stable in the postoperative period thus far. No acute events overnight. Participated in PT services yesterday with ambulation abilities progressing nicely, up to 25 ft with FWW x2 reps and SBA. Transfers from bed to chair with a x1 assist lifting left leg. Pain is well controlled at rest, some increased discomfort with weight bearing, as to be expected post-operatively. Did have increased discomfort overnight. She has been tolerating regular diet well, no nausea or emesis. Did have drainage through dressing on POD#1, dressing was changed by nursing staff. Dressing changed this morning on POD#2 by orthopedic provider. Medina catheter discontinued POD#1. IV Maintenance fluids discontinued evening of POD#1. Requires inpatient service at this time for additional monitoring of postoperative anemia, in addition to further PT services to progress functional mobility of LLE. Plan: * Anticipate participation in physical and occupational therapy services daily while in the hospital. * Dressing change performed on morning of POD#2 by orthopedic provider. Patient may remove dressing and be assisted with a shower today. * Continue with every 4 hours vital monitoring assessment. * Discontinue maintenance fluids * Postoperative anemia stable at this time; we will recheck a CBC if patient does become symptomatic. * Continue with current pain regimen. * Continue with 30 mg Lovenox subcutaneous daily for DVT/VTE prophylaxis. Bilateral lower extremity SCDs for mechanical DVT/VTE prophylaxis. * Anticipate patient will benefit from longterm facility placement for additional rehab services to progress functional mobility of left lower extremity to be safe for discharge to home. project planner is aware and looking for placement for patient.
[2021-09-09] MEDS ORDERED: HYDROmorphone 0.5 MG/0.5 ML Syringe IVPUSH PRN (09:14)
[2021-09-09] MEDS: Docusate Sodium 100 MG Cap PO SCH ×2 (09:24→20:45)
[2021-09-09] MEDS: Celecoxib 200 MG Cap PO SCH ×2 (09:24→20:45)
[2021-09-09] MEDS: Pravastatin 20 MG Tab PO SCH (09:24)
[2021-09-09] MEDS: Citalopram 10 MG Tab PO SCH (09:24)
[2021-09-09] MEDS: Nozin Nasal Sanitizer NASBOTH SCH ×2 (09:24→20:45)
[2021-09-09] MEDS: Enoxaparin 30 MG/0.3 ML Syringe SUBCUT SCH (09:33)
[2021-09-10] MEDS: Acetaminophen 325 MG Tab PO SCH ×4 (05:06→22:55)
[2021-09-10] MEDS: Enoxaparin 30 MG/0.3 ML Syringe SUBCUT SCH (08:33)
[2021-09-10] MEDS: Nozin Nasal Sanitizer NASBOTH SCH ×2 (08:33→21:19)
[2021-09-10] MEDS: Docusate Sodium 100 MG Cap PO SCH ×2 (08:33→21:20)
[2021-09-10] MEDS: Citalopram 10 MG Tab PO SCH (08:34)
[2021-09-10] MEDS: Pravastatin 20 MG Tab PO SCH (08:34)
[2021-09-10] MEDS: Celecoxib 200 MG Cap PO SCH ×2 (08:34→21:20)
--- NOTE | 2021-09-10 09:33 | PCM.SURGPN ---
- General Info Date of Service: 09/10/21 Date of Surgery/Procedure: 09/07/21 POD#: 3 Post-Op Diagnosis: left femoral neck fx Admission Diagnosis/Problem: Hip fracture requiring operative repair Functional Status: Reports: Pain Controlled, Tolerating Diet, Ambulating (with FWW ), Urinating - Review of Systems General: Denies: Fever, Weakness, Chills Pulmonary: Denies: Shortness of Breath Cardiovascular: Denies: Chest Pain, Lightheadedness Gastrointestinal: Denies: Constipation, Nausea, Vomiting Genitourinary: Denies: Urgency, Incontinence Musculoskeletal: Reports: Leg Pain (left ), Joint Pain (left hip, right knee ) Skin: Reports: Bruising (left hip ) Neurological: Reports: No Symptoms Psychiatric: Reports: No Symptoms - Patient Data Vitals - Most Recent: Last Vital Signs Temp 98.6 F 09/10/21 08:00 Pulse 64 09/10/21 08:00 Resp 16 09/10/21 08:00 BP 111/60 09/10/21 02:47 Pulse Ox 94 L 09/10/21 08:00 Weight - Most Recent: 119 lb 0.794 oz I&O - Last 24 Hours: Intake & Output 09/09/21 09/10/21 09/10/21 22:59 06:59 14:59 Intake Total 600 400 600 Balance 600 400 600 Med Orders - Current: Current Medications Acetaminophen (Acetaminophen 325 Mg Tab) 650 mg PO Q6H [facility] Last Admin: 09/10/21 05:06 Dose: 650 mg Documented by: Bandage/Support Products (Nozin Nasal [employer]) 1 applic NASBOTH BID [facility] Stop: 09/14/21 21:01 Last Admin: 09/10/21 08:33 Dose: 1 applic Documented by: Celecoxib (Celecoxib 200 Mg Cap) 200 mg PO BID [facility] Last Admin: 09/10/21 08:34 Dose: 200 mg Documented by: Citalopram Hydrobromide (Citalopram 10 Mg Tab) 10 mg PO DAILY [facility] Last Admin: 09/10/21 08:34 Dose: 10 mg Documented by: Docusate Sodium (Docusate Sodium 100 Mg Cap) 100 mg PO BID [facility] Last Admin: 09/10/21 08:33 Dose: 100 mg Documented by: Enoxaparin Sodium (Enoxaparin 30 Mg/0.3 Ml Syringe) 30 mg SUBCUT DAILY [facility] Last Admin: 09/10/21 08:33 Dose: 30 mg Documented by: Hydromorphone HCl (Hydromorphone 0.5 Mg/0.5 Ml Syringe) 0.5 mg IVPUSH Q2H PRN PRN Reason: Breakthrough Pain Sodium Chloride (Normal Saline) 1,000 mls @ 125 mls/hr IV ASDIRECTED [facility] Last Admin: 09/08/21 15:49 Dose: 125 mls/hr Documented by: Magnesium Hydroxide (Magnesium Hydroxide 400 Mg/5 Ml Susp 30 Ml Cup) 30 ml PO Q6H PRN PRN Reason: Stool Softener Metoclopramide HCl (Metoclopramide 10 Mg Tab) 10 mg PO Q6H PRN PRN Reason: Nausea/Vomiting Ondansetron HCl (Ondansetron 4 Mg/2 Ml Sdv) 4 mg IVPUSH Q6H PRN PRN Reason: Nausea/Vomiting Oxycodone HCl (Oxycodone 5 Mg Tab) 5 - 10 mg PO Q4H PRN PRN Reason: Pain Last Admin: 09/07/21 19:22 Dose: 5 mg Documented by: Pravastatin Sodium (Pravastatin 20 Mg Tab) 10 mg PO DAILY [facility] Last Admin: 09/10/21 08:34 Dose: 10 mg Documented by: Tramadol HCl (Tramadol 50 Mg Tab) 50 mg PO Q6H PRN PRN Reason: Pain (mild 1-3) Discontinued Medications Ephedrine Sulfate (Ephedrine 50 Mg/Ml Sdv) Confirm Administered Dose 50 mg .ROUTE .STK-MED ONE Stop: 09/07/21 16:34 Fentanyl (Fentanyl 100 Mcg/2 Ml Sdv) 50 mcg IVPUSH ONETIME ONE Stop: 09/06/21 23:44 Last Admin: 09/06/21 23:52 Dose: 25 mcg Documented by: Fentanyl (Fentanyl 100 Mcg/2 Ml Sdv) 25 mcg IVPUSH Q1H PRN PRN Reason: Pain (severe 7-10) Last Admin: 09/07/21 14:05 Dose: 25 mcg Documented by: Fentanyl (Fentanyl 100 Mcg/2 Ml Sdv) Confirm Administered Dose 100 mcg .ROUTE .STK-MED ONE Stop: 09/07/21 16:01 Hydromorphone HCl (Hydromorphone 0.5 Mg/0.5 Ml Syringe) 0.5 mg IVPUSH Q2H PRN PRN Reason: Breakthrough Pain Cefazolin Sodium/Dextrose 1 gm (/ Premix) 50 mls @ 100 mls/hr IV ONETIME ONE Stop: 09/07/21 16:29 Last Admin: 09/07/21 16:09 Dose: 100 mls/hr Documented by: Lactated Ringer's (Ringers, Lactated) Confirm Administered Dose 1,000 mls @ as directed .ROUTE .STK-MED ONE Stop: 09/07/21 16:43 Cefazolin Sodium 1 gm/ Sodium (Chloride) 50 mls @ 200 mls/hr IV Q8H [facility] Stop: 09/08/21 16:14 Last Admin: 09/08/21 00:15 Dose: 200 mls/hr Documented by: Cefazolin Sodium/Dextrose 1 gm (/ Premix) 50 mls @ 200 mls/hr IV Q8H [facility] Stop: 09/08/21 16:14 Last Admin: 09/08/21 15:49 Dose: 200 mls/hr Documented by: Ketorolac Tromethamine (Ketorolac 30 Mg/Ml Sdv) 15 mg IVPUSH Q6H [facility] Stop: 09/07/21 23:46 Last Admin: 09/08/21 00:11 Dose: 15 mg Documented by: Lorazepam (Lorazepam 2 Mg/Ml Sdv) 0.25 mg IVPUSH ONETIME ONE Stop: 09/07/21 01:59 Last Admin: 09/07/21 02:21 Dose: 0.25 mg Documented by: Midazolam HCl (Midazolam 1 Mg/Ml 2 Ml Sdv) Confirm Administered Dose 2 mg .ROUTE .STK-MED ONE Stop: 09/07/21 16:01 Povidone Iodine (Povidone-Iodine 10% Soln 118.25 Ml Bottle) Confirm Administered Dose 1 ml .ROUTE .STK-MED ONE Stop: 09/07/21 13:24 Propofol (Propofol 200 Mg/20 Ml Sdv) Confirm Administered Dose 200 mg .ROUTE .STK-MED ONE Stop: 09/07/21 16:01 - Exam Wound/Incisions: Healing Well, Drainage (scant dried drainage on left hip dr jes ). No: Erythema Quality Assessment: DVT Prophylaxis. No: Skin Breakdown General: Alert, Oriented, Cooperative, No Acute Distress Extremities: Normal Capillary Refill, Pedal Edema (per baseline ), Joint Swelling (diffuse, left hip into thigh), Leg Pain (left ), Limited Range of Motion (left hip due to postoperative pain ), Increased Warmth. No: Diego's Sign Skin: Dry, Intact, Ecchymosis (left hip, diffuse into thigh) Neurological: No New Focal Deficit Psy/Mental Status: Alert, Normal Affect, Normal Mood Sepsis Event Note - Evaluation Sepsis Screening Result: No Definite Risk - Focused Exam Vital Signs: Vital Signs Temp Temp Pulse Resp BP Pulse Ox 09/10/21 08:00 98.6 F 64 16 94 L 09/10/21 02:47 98.7 F 68 16 111/60 93 L 09/09/21 23:24 98.1 F 66 16 101/60 97 - Problem List & Annotations (1) Status post hip hemiarthroplasty SNOMED Code(s): 112320712, 151664310, 928711943, 993235402 Code(s): Z96.649 - PRESENCE OF UNSPECIFIED ARTIFICIAL HIP JOINT Status: Acute Current Visit: Yes (2) Postoperative anemia SNOMED Code(s): 150222781, 873646924 Code(s): D64.9 - ANEMIA, UNSPECIFIED Status: Acute Current Visit: Yes - Problem List Review Problem List Initiated/Reviewed/Updated: Yes - My Orders Last 24 Hours: Active Orders 24 hr Category Date Time Status HYDROmorphone [Dilaudid] Med 09/09/21 09:14 Active 0.5 mg IVPUSH Q2H PRN Medication Orders Acetaminophen (Acetaminophen 325 Mg Tab) 650 mg PO Q6H [facility] Fazal Admin: 09/10/21 05:06 Dose: 650 mg Documented by: Admin: 09/09/21 23:26 Dose: 650 mg Documented by: Admin: 09/09/21 17:08 Dose: 650 mg Documented by: Admin: 09/09/21 12:24 Dose: 650 mg Documented by: Admin: 09/09/21 06:11 Dose: 650 mg Documented by: Admin: 09/08/21 22:49 Dose: Not Given Documented by: Admin: 09/08/21 17:08 Dose: 650 mg Documented by: Admin: 09/08/21 10:45 Dose: 650 mg Documented by: Admin: 09/08/21 04:58 Dose: Not Given Documented by: Admin: 09/08/21 00:15 Dose: 650 mg Documented by: Admin: 09/07/21 18:22 Dose: 650 mg Documented by: CHATA Bandage/Support Products (Nozin Nasal [employer]) 1 applic NASBOTH BID [facility] Stop: 09/14/21 21:01 Last Admin: 09/10/21 08:33 Dose: 1 applic Documented by: Admin: 09/09/21 20:45 Dose: 1 applic Documented by: Admin: 09/09/21 09:24 Dose: 1 applic Documented by: Admin: 09/08/21 21:53 Dose: 1 applic Documented by: Admin: 09/08/21 10:37 Dose: 1 applic Documented by: Admin: 09/07/21 20:51 Dose: Not Given Documented by: MELISSA Celecoxib (Celecoxib 200 Mg Cap) 200 mg PO BID [facility] Admin: 09/10/21 08:34 Dose: 200 mg Documented by: Admin: 09/09/21 20:45 Dose: 200 mg Documented by: Admin: 09/09/21 09:24 Dose: 200 mg Documented by: Admin: 09/08/21 21:53 Dose: 200 mg Documented by: Admin: 09/08/21 08:04 Dose: 200 mg Documented by: ENID Citalopram Hydrobromide (Citalopram 10 Mg Tab) 10 mg PO DAILY [facility] Admin: 09/10/21 08:34 Dose: 10 mg Documented by: Admin: 09/09/21 09:24 Dose: 10 mg Documented by: Admin: 09/08/21 08:04 Dose: 10 mg Documented by: ENID Docusate Sodium (Docusate Sodium 100 Mg Cap) 100 mg PO BID [facility] Admin: 09/10/21 08:33 Dose: 100 mg Documented by: Admin: 09/09/21 20:45 Dose: 100 mg Documented by: Admin: 09/09/21 09:24 Dose: 100 mg Documented by: Admin: 09/08/21 21:53 Dose: 100 mg Documented by: Admin: 09/08/21 08:22 Dose: 100 mg Documented by: Admin: 09/07/21 20:51 Dose: Not Given Documented by: MELISSA Enoxaparin Sodium (Enoxaparin 30 Mg/0.3 Ml Syringe) 30 mg SUBCUT DAILY [facility] Admin: 09/10/21 08:33 Dose: 30 mg Documented by: Admin: 09/09/21 09:33 Dose: 30 mg Documented by: Admin: 09/08/21 08:04 Dose: 30 mg Documented by: ENID Hydromorphone HCl (Hydromorphone 0.5 Mg/0.5 Ml Syringe) 0.5 mg IVPUSH Q2H PRN PRN Reason: Breakthrough Pain Sodium Chloride (Normal Saline) 1,000 mls @ 125 mls/hr IV ASDIRECTED [facility] Admin: 09/08/21 15:49 Dose: 125 mls/hr Documented by: Infusion: 09/08/21 15:07 Dose: 125 mls/hr Documented by: Admin: 09/08/21 07:07 Dose: 125 mls/hr Documented by: Infusion: 09/08/21 06:51 Dose: 125 mls/hr Documented by: Admin: 09/07/21 22:51 Dose: 125 mls/hr Documented by: MELISSA Magnesium Hydroxide (Magnesium Hydroxide 400 Mg/5 Ml Susp 30 Ml Cup) 30 ml PO Q6H PRN PRN Reason: Stool Softener Metoclopramide HCl (Metoclopramide 10 Mg Tab) 10 mg PO Q6H PRN PRN Reason: Nausea/Vomiting Ondansetron HCl (Ondansetron 4 Mg/2 Ml Sdv) 4 mg IVPUSH Q6H PRN PRN Reason: Nausea/Vomiting Oxycodone HCl (Oxycodone 5 Mg Tab) 5 - 10 mg PO Q4H PRN PRN Reason: Pain Last Admin: 09/07/21 19:22 Dose: 5 mg Documented by: MELISSA Pravastatin Sodium (Pravastatin 20 Mg Tab) 10 mg PO DAILY [facility] Last Admin: 09/10/21 08:34 Dose: 10 mg Documented by: Admin: 09/09/21 09:24 Dose: 10 mg Documented by: Admin: 09/08/21 08:04 Dose: 10 mg Documented by: ENID Tramadol HCl (Tramadol 50 Mg Tab) 50 mg PO Q6H PRN PRN Reason: Pain (mild 1-3) - Assessment Assessment (Free Text/Narrative):: Patient is a pleasant 86-year-old female, status post left hip hemiarthroplasty, postop day #3. Patient has remained hemodynamically stable in the postoperative period thus far. No acute events overnight. Patient has been compliant with PT services daily. Ambulation abilities improving nicely, walking 40 ft with FWW and x1 assist. Does require assistance with lifting left leg into and out of bed. Moderate assistance with ADLs. Pain is well controlled at rest, some increased discomfort with weight bearing, as to be expected post-operatively. She has been tolerating regular diet well, no nausea or emesis. Was able to shower on POD#2. Patient did have bowel movement on morning of POD#3. Requires inpatient service at this time for additional monitoring of postoperative anemia, in addition to further PT services to progress functional mobility of LLE. Plan: * Anticipate participation in physical and occupational therapy services daily while in the hospital. No services available on Saturday, may ambulate with nursing staff in the roman and work on exercises in bed provided by therapist independently. * Continue with every 4 hours vital monitoring assessment. * Postoperative anemia stable at this time; we will recheck a CBC if patient does become symptomatic. * Continue with current pain regimen. * Continue with 30 mg Lovenox subcutaneous daily for DVT/VTE prophylaxis. Bilateral lower extremity SCDs for mechanical DVT/VTE prophylaxis. * Anticipate patient will benefit from long-term facility placement for additional rehab services to progress functional mobility of left lower extremity to be safe for discharge to home. site planner is aware and looking for placement for patient.
[2021-09-11] MEDS: Acetaminophen 325 MG Tab PO SCH ×5 (05:24→23:50)
--- NOTE | 2021-09-11 07:45 | PCM.SURGPN ---
- General Info Date of Service: 09/11/21 Date of Surgery/Procedure: 09/07/21 POD#: 4 Post-Op Diagnosis: left femoral neck fx Admission Diagnosis/Problem: Hip fracture requiring operative repair Functional Status: Reports: Pain Controlled, Tolerating Diet, Ambulating (with FWW, SBA ) - Review of Systems General: Denies: Fever, Fatigue, Chills HEENT: Denies: Visual Changes Pulmonary: Denies: Shortness of Breath Cardiovascular: Denies: Chest Pain, Palpitations Gastrointestinal: Denies: Constipation, Nausea, Vomiting Genitourinary: Denies: Urgency Musculoskeletal: Reports: Leg Pain (left ), Joint Pain (left hip) Skin: Reports: Bruising Neurological: Reports: No Symptoms Psychiatric: Reports: No Symptoms - Patient Data Vitals - Most Recent: Last Vital Signs Temp 98.6 F 09/11/21 07:00 Pulse 66 09/11/21 07:00 Resp 18 09/11/21 07:00 BP 116/46 L 09/11/21 07:00 Pulse Ox 95 09/11/21 07:00 Weight - Most Recent: 119 lb I&O - Last 24 Hours: Intake & Output 09/10/21 09/11/21 09/11/21 22:59 06:59 14:59 Intake Total 600 240 Balance 600 240 Med Orders - Current: Current Medications Acetaminophen (Acetaminophen 325 Mg Tab) 650 mg PO Q6H [facility] Last Admin: 09/11/21 05:24 Dose: Not Given Documented by: Bandage/Support Products (Nozin Nasal Insurance Representative) 1 applic NASBOTH BID [facility] Stop: 09/14/21 21:01 Last Admin: 09/10/21 21:19 Dose: 1 applic Documented by: Celecoxib (Celecoxib 200 Mg Cap) 200 mg PO BID [facility] Last Admin: 09/10/21 21:20 Dose: 200 mg Documented by: Citalopram Hydrobromide (Citalopram 10 Mg Tab) 10 mg PO DAILY [facility] Last Admin: 09/10/21 08:34 Dose: 10 mg Documented by: Docusate Sodium (Docusate Sodium 100 Mg Cap) 100 mg PO BID [facility] Last Admin: 09/10/21 21:20 Dose: 100 mg Documented by: Enoxaparin Sodium (Enoxaparin 30 Mg/0.3 Ml Syringe) 30 mg SUBCUT DAILY [facility] Last Admin: 09/10/21 08:33 Dose: 30 mg Documented by: Hydromorphone HCl (Hydromorphone 0.5 Mg/0.5 Ml Syringe) 0.5 mg IVPUSH Q2H PRN PRN Reason: Breakthrough Pain Sodium Chloride (Normal Saline) 1,000 mls @ 125 mls/hr IV ASDIRECTED [facility] Last Admin: 09/08/21 15:49 Dose: 125 mls/hr Documented by: Magnesium Hydroxide (Magnesium Hydroxide 400 Mg/5 Ml Susp 30 Ml Cup) 30 ml PO Q6H PRN PRN Reason: Stool Softener Metoclopramide HCl (Metoclopramide 10 Mg Tab) 10 mg PO Q6H PRN PRN Reason: Nausea/Vomiting Ondansetron HCl (Ondansetron 4 Mg/2 Ml Sdv) 4 mg IVPUSH Q6H PRN PRN Reason: Nausea/Vomiting Oxycodone HCl (Oxycodone 5 Mg Tab) 5 - 10 mg PO Q4H PRN PRN Reason: Pain Last Admin: 09/07/21 19:22 Dose: 5 mg Documented by: Pravastatin Sodium (Pravastatin 20 Mg Tab) 10 mg PO DAILY [facility] Last Admin: 09/10/21 08:34 Dose: 10 mg Documented by: Tramadol HCl (Tramadol 50 Mg Tab) 50 mg PO Q6H PRN PRN Reason: Pain (mild 1-3) Discontinued Medications Ephedrine Sulfate (Ephedrine 50 Mg/Ml Sdv) Confirm Administered Dose 50 mg .ROUTE .STK-MED ONE Stop: 09/07/21 16:34 Fentanyl (Fentanyl 100 Mcg/2 Ml Sdv) 50 mcg IVPUSH ONETIME ONE Stop: 09/06/21 23:44 Last Admin: 09/06/21 23:52 Dose: 25 mcg Documented by: Fentanyl (Fentanyl 100 Mcg/2 Ml Sdv) 25 mcg IVPUSH Q1H PRN PRN Reason: Pain (severe 7-10) Last Admin: 09/07/21 14:05 Dose: 25 mcg Documented by: Fentanyl (Fentanyl 100 Mcg/2 Ml Sdv) Confirm Administered Dose 100 mcg .ROUTE .STK-MED ONE Stop: 09/07/21 16:01 Hydromorphone HCl (Hydromorphone 0.5 Mg/0.5 Ml Syringe) 0.5 mg IVPUSH Q2H PRN PRN Reason: Breakthrough Pain Cefazolin Sodium/Dextrose 1 gm (/ Premix) 50 mls @ 100 mls/hr IV ONETIME ONE Stop: 09/07/21 16:29 Last Admin: 09/07/21 16:09 Dose: 100 mls/hr Documented by: Lactated Ringer's (Ringers, Lactated) Confirm Administered Dose 1,000 mls @ as directed .ROUTE .STK-MED ONE Stop: 09/07/21 16:43 Cefazolin Sodium 1 gm/ Sodium (Chloride) 50 mls @ 200 mls/hr IV Q8H [facility] Stop: 09/08/21 16:14 Last Admin: 09/08/21 00:15 Dose: 200 mls/hr Documented by: Cefazolin Sodium/Dextrose 1 gm (/ Premix) 50 mls @ 200 mls/hr IV Q8H [facility] Stop: 09/08/21 16:14 Last Admin: 09/08/21 15:49 Dose: 200 mls/hr Documented by: Ketorolac Tromethamine (Ketorolac 30 Mg/Ml Sdv) 15 mg IVPUSH Q6H [facility] Stop: 09/07/21 23:46 Last Admin: 09/08/21 00:11 Dose: 15 mg Documented by: Lorazepam (Lorazepam 2 Mg/Ml Sdv) 0.25 mg IVPUSH ONETIME ONE Stop: 09/07/21 01:59 Last Admin: 09/07/21 02:21 Dose: 0.25 mg Documented by: Midazolam HCl (Midazolam 1 Mg/Ml 2 Ml Sdv) Confirm Administered Dose 2 mg .ROUTE .STK-MED ONE Stop: 09/07/21 16:01 Povidone Iodine (Povidone-Iodine 10% Soln 118.25 Ml Bottle) Confirm Administered Dose 1 ml .ROUTE .STK-MED ONE Stop: 09/07/21 13:24 Propofol (Propofol 200 Mg/20 Ml Sdv) Confirm Administered Dose 200 mg .ROUTE .STK-MED ONE Stop: 09/07/21 16:01 - Exam Wound/Incisions: Healing Well, No Drainage. No: Erythema Quality Assessment: DVT Prophylaxis General: Alert, Oriented, Cooperative, No Acute Distress Extremities: Normal Capillary Refill, Pedal Edema (per baseline ), Leg Pain (left ), Limited Range of Motion, Increased Warmth (left hip). No: Diego's Sign Skin: Warm, Dry, Intact, Ecchymosis (left hip ) Neurological: No New Focal Deficit Psy/Mental Status: Alert, Normal Affect, Normal Mood Sepsis Event Note - Evaluation Sepsis Screening Result: No Definite Risk - Focused Exam Vital Signs: Vital Signs Temp Pulse Resp BP Pulse Ox 09/11/21 07:00 98.6 F 66 18 116/46 L 95 09/11/21 02:46 98.6 F 64 16 120/63 95 09/10/21 22:53 98.8 F 66 16 117/60 95 - Problem List & Annotations (1) Status post hip hemiarthroplasty SNOMED Code(s): 729723658, 308465337, 731710551, 077631809 Code(s): Z96.649 - PRESENCE OF UNSPECIFIED ARTIFICIAL HIP JOINT Status: Acute Current Visit: Yes (2) Postoperative anemia SNOMED Code(s): 093957120, 430787076 Code(s): D64.9 - ANEMIA, UNSPECIFIED Status: Acute Current Visit: Yes - Problem List Review Problem List Initiated/Reviewed/Updated: Yes - My Orders Last 24 Hours: Medication Orders Acetaminophen (Acetaminophen 325 Mg Tab) 650 mg PO Q6H [facility] Admin: 09/11/21 05:24 Dose: Not Given Documented by: Admin: 09/10/21 22:55 Dose: 650 mg Documented by: Admin: 09/10/21 17:47 Dose: 650 mg Documented by: Admin: 09/10/21 11:42 Dose: 650 mg Documented by: Admin: 09/10/21 05:06 Dose: 650 mg Documented by: Admin: 09/09/21 23:26 Dose: 650 mg Documented by: Admin: 09/09/21 17:08 Dose: 650 mg Documented by: Admin: 09/09/21 12:24 Dose: 650 mg Documented by: Admin: 09/09/21 06:11 Dose: 650 mg Documented by: Admin: 09/08/21 22:49 Dose: Not Given Documented by: Admin: 09/08/21 17:08 Dose: 650 mg Documented by: Admin: 09/08/21 10:45 Dose: 650 mg Documented by: Admin: 09/08/21 04:58 Dose: Not Given Documented by: Admin: 09/08/21 00:15 Dose: 650 mg Documented by: Admin: 09/07/21 18:22 Dose: 650 mg Documented by: CHATA Bandage/Support Products (Nozin Nasal Insurance Representative) 1 applic NASBOTH BID [facility] Stop: 09/14/21 21:01 Last Admin: 09/10/21 21:19 Dose: 1 applic Documented by: Admin: 09/10/21 08:33 Dose: 1 applic Documented by: Admin: 09/09/21 20:45 Dose: 1 applic Documented by: Admin: 09/09/21 09:24 Dose: 1 applic Documented by: Admin: 09/08/21 21:53 Dose: 1 applic Documented by: Admin: 09/08/21 10:37 Dose: 1 applic Documented by: Admin: 09/07/21 20:51 Dose: Not Given Documented by: MELISSA Celecoxib (Celecoxib 200 Mg Cap) 200 mg PO BID [facility] Admin: 09/10/21 21:20 Dose: 200 mg Documented by: Admin: 09/10/21 08:34 Dose: 200 mg Documented by: Admin: 09/09/21 20:45 Dose: 200 mg Documented by: Admin: 09/09/21 09:24 Dose: 200 mg Documented by: Admin: 09/08/21 21:53 Dose: 200 mg Documented by: Admin: 09/08/21 08:04 Dose: 200 mg Documented by: ENID Citalopram Hydrobromide (Citalopram 10 Mg Tab) 10 mg PO DAILY [facility] Admin: 09/10/21 08:34 Dose: 10 mg Documented by: Admin: 09/09/21 09:24 Dose: 10 mg Documented by: Admin: 09/08/21 08:04 Dose: 10 mg Documented by: ENID Docusate Sodium (Docusate Sodium 100 Mg Cap) 100 mg PO BID [facility] Admin: 09/10/21 21:20 Dose: 100 mg Documented by: Admin: 09/10/21 08:33 Dose: 100 mg Documented by: Admin: 09/09/21 20:45 Dose: 100 mg Documented by: Admin: 09/09/21 09:24 Dose: 100 mg Documented by: Admin: 09/08/21 21:53 Dose: 100 mg Documented by: Admin: 09/08/21 08:22 Dose: 100 mg Documented by: Admin: 09/07/21 20:51 Dose: Not Given Documented by: MELISSA Enoxaparin Sodium (Enoxaparin 30 Mg/0.3 Ml Syringe) 30 mg SUBCUT DAILY [facility] Admin: 09/10/21 08:33 Dose: 30 mg Documented by: Admin: 09/09/21 09:33 Dose: 30 mg Documented by: Admin: 09/08/21 08:04 Dose: 30 mg Documented by: ENID Hydromorphone HCl (Hydromorphone 0.5 Mg/0.5 Ml Syringe) 0.5 mg IVPUSH Q2H PRN PRN Reason: Breakthrough Pain Sodium Chloride (Normal Saline) 1,000 mls @ 125 mls/hr IV ASDIRECTED [facility] Admin: 09/08/21 15:49 Dose: 125 mls/hr Documented by: Infusion: 09/08/21 15:07 Dose: 125 mls/hr Documented by: Admin: 09/08/21 07:07 Dose: 125 mls/hr Documented by: Infusion: 09/08/21 06:51 Dose: 125 mls/hr Documented by: Admin: 09/07/21 22:51 Dose: 125 mls/hr Documented by: MELISSA Magnesium Hydroxide (Magnesium Hydroxide 400 Mg/5 Ml Susp 30 Ml Cup) 30 ml PO Q6H PRN PRN Reason: Stool Softener Metoclopramide HCl (Metoclopramide 10 Mg Tab) 10 mg PO Q6H PRN PRN Reason: Nausea/Vomiting Ondansetron HCl (Ondansetron 4 Mg/2 Ml Sdv) 4 mg IVPUSH Q6H PRN PRN Reason: Nausea/Vomiting Oxycodone HCl (Oxycodone 5 Mg Tab) 5 - 10 mg PO Q4H PRN PRN Reason: Pain Last Admin: 09/07/21 19:22 Dose: 5 mg Documented by: MELISSA Pravastatin Sodium (Pravastatin 20 Mg Tab) 10 mg PO DAILY [facility] Last Admin: 09/10/21 08:34 Dose: 10 mg Documented by: Admin: 09/09/21 09:24 Dose: 10 mg Documented by: Admin: 09/08/21 08:04 Dose: 10 mg Documented by: ENID Tramadol HCl (Tramadol 50 Mg Tab) 50 mg PO Q6H PRN PRN Reason: Pain (mild 1-3) - Assessment Assessment (Free Text/Narrative):: Patient is a pleasant 86-year-old female, status post left hip hemiarthroplasty, postop day #4. Patient has remained hemodynamically stable in the postoperative period thus far. No acute events overnight. Patient has been compliant with physical therapy services daily. Ambulation ab ilities improving nicely, walking 120 ft with front wheel walker and xSBA. Does require assistance with lifting left leg into and out of bed. Has not worked on stairs yet. Does require moderate assistance with ADLs. Pain is well controlled at rest, increased discomfort with weight bearing in the left hip. Has been tolerating regular diet well, no nausea or emesis. Patient has right knee osteoarthritis. Right knee pain has been a limiting factor in ambulation abilities while recovering left hip. Elected to undergo right knee cortisone injection today. Requires inpatient service at this time for additional monitoring of postoperative anemia, in addition to further PT services to progress functional mobility of LLE. Plan: * Anticipate participation in physical and occupational therapy services daily while in the hospital. * Continue with every 4 hours vital monitoring assessment. * Postoperative anemia stable at this time; we will recheck a CBC if patient does become symptomatic. * Continue with current pain regimen. * Continue with 30 mg Lovenox subcutaneous daily for DVT/VTE prophylaxis. Bilateral lower extremity SCDs for mechanical DVT/VTE prophylaxis. * Anticipate discharge to [facility] tomorrow, 09/12 at noon for additional rehabilitation services prior to discharging home.
[2021-09-11] MEDS: Enoxaparin 30 MG/0.3 ML Syringe SUBCUT SCH (08:47)
[2021-09-11] MEDS: Celecoxib 200 MG Cap PO SCH ×2 (08:47→21:25)
[2021-09-11] MEDS: Citalopram 10 MG Tab PO SCH (08:47)
[2021-09-11] MEDS: Docusate Sodium 100 MG Cap PO SCH ×2 (08:47→21:25)
[2021-09-11] MEDS: Nozin Nasal Sanitizer NASBOTH SCH ×2 (08:47→21:25)
[2021-09-11] MEDS: Pravastatin 20 MG Tab PO SCH (08:48)
--- NOTE | 2021-09-11 16:03 | PCM.DCSUM1 ---
Discharge Summary - Hospital Course Brief History: pleasant 86 y/o female who sustained a fall at home, resulting in left femoral neck fracture on the evening of 09/06/21. Was seen through the ER and admitted for surgical fixation of fracture on 09/07/21. Patient underwent left hip hemiarthroplasty on 09/07/21, tolerated surgery well with no significant complications. See hospital course below for full details. Diagnosis: Stroke: No Modified Caty Scale: No Symptoms at All Modified Wood Scale Score: 0 - Discharge Data Discharge Date: 09/12/21 Discharge Disposition: DC/Tfer to SNF 03 Condition: Good - Referral to Home Health Date of Face to Face Encounter: 09/12/21 Primary Care Physician: PCP None - Discharge Diagnosis/Problem(s) (1) Status post hip hemiarthroplasty SNOMED Code(s): 932175780, 876623130, 901313969, 186411838 ICD Code: Z96.649 - PRESENCE OF UNSPECIFIED ARTIFICIAL HIP JOINT Status: Acute Current Visit: Yes (2) Postoperative anemia SNOMED Code(s): 638784792, 923498746 ICD Code: D64.9 - ANEMIA, UNSPECIFIED Status: Acute Current Visit: Yes - Patient Summary/Data Operative Procedure(s) Performed: left hip hemiarthroplasty Consults: Consultations 09/07/21 08:49 Consult to Orthopedic Clinic [CONS] Routine Comment: Physician Instructions: Consult to Physician [CONS] Routine Consulting Provider: Andrei Childs Call Completed to Consulting Physician: Yes Reason for Consult: Left hip fracture Person Notified: yes 09/07/21 17:37 Consult to Case Management/Vice President [employer]ostatistics [CONS] Routine Comment: Physician Instructions: Discharge placement post hip surgery Service(s) to be Consulted: Case Management Special Instructions: anticipate dc to either SNF or home with home health, pending progress with functional mobilty PT Evaluation and Treatment [CONS] Routine Please Evaluate and Treat. PT Reason for Consult: Post op Ortho Surgery Hip Pending Discharge: Yes, 2- -3 days Special Instructions: Schedule first outpatient P.T. appointment 3 - 5 days post discharge This query below is only for informational purposes and is not editable. Admission Diagnosis/Problem: Hip fracture requiring operative repair 09/07/21 17:40 OT Evaluation and Treatment [CONS] Routine Please Evaluate and Treat. OT Reason for Consult: ADL's Special Instructions: Status post Hip Surgery This query below is only for informational purposes and is not editable. Admission Diagnosis/Problem: Hip fracture requiring operative repair Hospital Course: Pleasant 86 y/o female, who sustained a fall at home on 09/06/21, resulting in a left femoral neck fracture. Patient was admitted through the ER department for surgical fixation. Patient underwent a left hip hemiarthroplasty on 09/07/21. Patient tolerated surgery well with no major complications. Has remained hemodynamically stable with no acute events in the post-operative period. POD#1 HgB was declined at 11.2. Patient was asymptomatic with this, denied dizziness nor lightheadedness with positional changes. Has been using incentive spirometer QID. Patients left hip pain was well controlled with oral medications throughout her post-operative period. Endorsed increased pain with weight bearing on left leg, as to be expected after her type of fracture and surgery. Patient does have right knee osteoarthritis, with symptoms impacting ambulation prior to hospitalization. Elected to have right knee cortisone injection on POD#4. Had significant improvement in right knee pain thereafter. Patient was compliant with physical therapy services daily. Ambulation abilities progressed nicely, walking up to 500 ft with front wheel walker and SBA. Does require assistance with lifting left leg into and out of bed. Has been working independently on strengthening exercises to LLE provided by physical therapy. Moderate assistance required with most ADLs. Tolerated regular diet well with no nausea or emesis. Patient's dressing did have some drainage the evening of surgery and POD#1. No active drainage from incision thereafter. Dressing change by orthopedic provider on POD#2. Patient was able to shower later in the day on POD#2. Medina catheter removed POD#1. IV maintenance fluids discontinued POD#2. Did have a bowel movement on POD#3. Patients functional mobility of LLE improved nicely throughout stay, but she will greatly benefit from additional rehabilitation services at SNF prior to discharge home. - Patient Instructions Diet: Usual Diet as Tolerated Activity: Apply Ice, Full Weight Bearing Driving: Do Not Drive Showering/Bathing: May Shower Wound/Incision Care: Keep Operative Site/Wound Site Clean and Dry, Change Dressing Daily (if steristrips irritating clothing, or if any drainage from incision ) Notify Provider of: Fever, Increased Pain, Swelling and Redness, Drainage - Discharge Plan *PRESCRIPTION DRUG MONITORING PROGRAM REVIEWED*: Yes *COPY OF PRESCRIPTION DRUG MONITORING REPORT IN PATIENT REFUGIO: Not Applicable Home Medications: Home Meds Calcium Carbonate/Vitamin D3 [Oyster Shell 500-Vit D3 200 Tb] 1 tab PO DAILY 12/27/20 [History] Cholecalciferol (Vitamin D3) [Vitamin D] 1,000 unit PO DAILY 12/27/20 [History] Citalopram [Citalopram HBr] 10 mg PO DAILY 12/27/20 [History] Pravastatin Sodium 10 mg PO DAILY 12/27/20 [History] Multivitamin [Multi-Vitamin Daily] 1 each PO DAILY 09/06/21 [History] Aspirin [Ecotrin EC] 325 mg PO BID 09/11/21 [History] Celecoxib [CeleBREX] 200 mg PO BID 09/11/21 [History] Acetaminophen [Tylenol Arthritis] 650 mg PO Q6HR 09/12/21 [History] traMADol [Ultram] 50 mg PO Q6HR PRN 09/12/21 [History] Oxygen Therapy Mode: Room Air Patient Handouts: Hip Fracture Treated With ORIF, Care After, Fall Prevention in the Home, Adult, [id number], Preventing Problems After Surgery, How to Prevent Constipation After Surgery Forms: ED Department Discharge Referrals: Andrei Childs MD [Physician] - 09/21/21 10:45 am - Discharge Summary/Plan Comment DC Time >30 min.: No Total # of Minutes for Discharge Time: 20 Discharge Summary/Plan Comment: * Discharge to alf facility. Will benefit greatly from additional rehabilitation services prior to discharge to home * Pain control: * Scheduled 650 mg PO Tylenol q6 hrs * Scheduled 200 mg PO Celebrex BID * 50 mg PO Tramadol q6 hrs prn for breakthrough pain * DVT/VTE prophylaxis: * Educated patient on warning signs of DVT/VTE; any concerns, should contact the clinic or visit local ER. Patient verbalized understanding of warning signs of DVT/VTE and return parameters. * Educated to take 1 aspirin BID for chemical DVT/VTE prophylaxis. * Continue with Nozin spray BID. * Continue using incentive spirometer TID for the following week. * May shower; leave steristrips on and let water run over the top. They will fall off in 5-7 days. Do not vigorously scrub incision, no submerging incision in bath water. * Follow up with orthopedics in 2 weeks; contact clinic with any concerns or questions that arise prior to scheduled apt - General Info Date of Service: 09/12/21 Admission Dx/Problem (Free Text: Admission Diagnosis/Problem Admission Diagnosis/Problem Hip fracture requiring operative repair Functional Status: Reports: Pain Controlled, Tolerating Diet, Ambulating (with front wheel walker), Urinating, Incentive Spirometry - Review of Systems General: Denies: Fever, Fatigue, Chills HEENT: Denies: Visual Changes Pulmonary: Denies: Shortness of Breath Cardiovascular: Denies: Chest Pain, Palpitations, Lightheadedness Gastrointestinal: Denies: Constipation, Nausea, Vomiting Genitourinary: Denies: Urgency, Incontinence Musculoskeletal: Reports: Leg Pain (left ), Joint Pain (left hip), Joint Swelling (diffuse, left hip) Skin: Reports: Bruising (left hip ) Neurological: Reports: No Symptoms Psychiatric: Reports: No Symptoms - Patient Data Vitals - Most Recent: Last Vital Signs Temp 99.0 F 09/11/21 14:27 Pulse 63 09/11/21 14:27 Resp 18 09/11/21 14:27 BP 115/63 09/11/21 14:27 Pulse Ox 98 09/11/21 14:27 Weight - Most Recent: 119 lb I&O - Last 24 hours: Intake & Output 09/11/21 09/11/21 09/11/21 06:59 14:59 22:59 Intake Total 240 Balance 240 Med Orders - Current: Current Medications Acetaminophen (Acetaminophen 325 Mg Tab) 650 mg PO Q6H [facility] Last Admin: 09/11/21 12:08 Dose: Not Given Documented by: Bandage/Support Products (Nozin Nasal Second Shift Supervisor) 1 applic NASBOTH BID [facility] Stop: 09/14/21 21:01 Last Admin: 09/11/21 08:47 Dose: 1 applic Documented by: Celecoxib (Celecoxib 200 Mg Cap) 200 mg PO BID [facility] Last Admin: 09/11/21 08:47 Dose: 200 mg Documented by: Citalopram Hydrobromide (Citalopram 10 Mg Tab) 10 mg PO DAILY [facility] Last Admin: 09/11/21 08:47 Dose: 10 mg Documented by: Docusate Sodium (Docusate Sodium 100 Mg Cap) 100 mg PO BID [facility] Last Admin: 09/11/21 08:47 Dose: 100 mg Documented by: Enoxaparin Sodium (Enoxaparin 30 Mg/0.3 Ml Syringe) 30 mg SUBCUT DAILY [facility] Last Admin: 09/11/21 08:47 Dose: 30 mg Documented by: Hydromorphone HCl (Hydromorphone 0.5 Mg/0.5 Ml Syringe) 0.5 mg IVPUSH Q2H PRN PRN Reason: Breakthrough Pain Sodium Chloride (Normal Saline) 1,000 mls @ 125 mls/hr IV ASDIRECTED [facility] Last Admin: 09/08/21 15:49 Dose: 125 mls/hr Documented by: Magnesium Hydroxide (Magnesium Hydroxide 400 Mg/5 Ml Susp 30 Ml Cup) 30 ml PO Q6H PRN PRN Reason: Stool Softener Metoclopramide HCl (Metoclopramide 10 Mg Tab) 10 mg PO Q6H PRN PRN Reason: Nausea/Vomiting Ondansetron HCl (Ondansetron 4 Mg/2 Ml Sdv) 4 mg IVPUSH Q6H PRN PRN Reason: Nausea/Vomiting Oxycodone HCl (Oxycodone 5 Mg Tab) 5 - 10 mg PO Q4H PRN PRN Reason: Pain Last Admin: 09/07/21 19:22 Dose: 5 mg Documented by: Pravastatin Sodium (Pravastatin 20 Mg Tab) 10 mg PO DAILY [facility] Last Admin: 09/11/21 08:48 Dose: 10 mg Documented by: Tramadol HCl (Tramadol 50 Mg Tab) 50 mg PO Q6H PRN PRN Reason: Pain (mild 1-3) Discontinued Medications Ephedrine Sulfate (Ephedrine 50 Mg/Ml Sdv) Confirm Administered Dose 50 mg .ROUTE .STK-MED ONE Stop: 09/07/21 16:34 Fentanyl (Fentanyl 100 Mcg/2 Ml Sdv) 50 mcg IVPUSH ONETIME ONE Stop: 09/06/21 23:44 Last Admin: 09/06/21 23:52 Dose: 25 mcg Documented by: Fentanyl (Fentanyl 100 Mcg/2 Ml Sdv) 25 mcg IVPUSH Q1H PRN PRN Reason: Pain (severe 7-10) Last Admin: 09/07/21 14:05 Dose: 25 mcg Documented by: Fentanyl (Fentanyl 100 Mcg/2 Ml Sdv) Confirm Administered Dose 100 mcg .ROUTE .STK-MED ONE Stop: 09/07/21 16:01 Hydromorphone HCl (Hydromorphone 0.5 Mg/0.5 Ml Syringe) 0.5 mg IVPUSH Q2H PRN PRN Reason: Breakthrough Pain Cefazolin Sodium/Dextrose 1 gm (/ Premix) 50 mls @ 100 mls/hr IV ONETIME ONE Stop: 09/07/21 16:29 Last Admin: 09/07/21 16:09 Dose: 100 mls/hr Documented by: Lactated Ringer's (Ringers, Lactated) Confirm Administered Dose 1,000 mls @ as directed .ROUTE .STK-MED ONE Stop: 09/07/21 16:43 Cefazolin Sodium 1 gm/ Sodium (Chloride) 50 mls @ 200 mls/hr IV Q8H [facility] Stop: 09/08/21 16:14 Last Admin: 09/08/21 00:15 Dose: 200 mls/hr Documented by: Cefazolin Sodium/Dextrose 1 gm (/ Premix) 50 mls @ 200 mls/hr IV Q8H [facility] Stop: 09/08/21 16:14 Last Admin: 09/08/21 15:49 Dose: 200 mls/hr Documented by: Ketorolac Tromethamine (Ketorolac 30 Mg/Ml Sdv) 15 mg IVPUSH Q6H [facility] Stop: 09/07/21 23:46 Last Admin: 09/08/21 00:11 Dose: 15 mg Documented by: Lorazepam (Lorazepam 2 Mg/Ml Sdv) 0.25 mg IVPUSH ONETIME ONE Stop: 09/07/21 01:59 Last Admin: 09/07/21 02:21 Dose: 0.25 mg Documented by: Midazolam HCl (Midazolam 1 Mg/Ml 2 Ml Sdv) Confirm Administered Dose 2 mg .ROUTE .STK-MED ONE Stop: 09/07/21 16:01 Povidone Iodine (Povidone-Iodine 10% Soln 118.25 Ml Bottle) Confirm Administered Dose 1 ml .ROUTE .STK-MED ONE Stop: 09/07/21 13:24 Propofol (Propofol 200 Mg/20 Ml Sdv) Confirm Administered Dose 200 mg .ROUTE .STK-MED ONE Stop: 09/07/21 16:01 - Exam Quality Assessment: Reports: DVT Prophylaxis General: Reports: Alert, Oriented, Cooperative, No Acute Distress Extremities: Pedal Edema (per baseline ), Joint Swelling (diffuse, left hip extending into thigh), Leg Pain (left ), Limited Range of Motion (left hip due to postoperative pain). No: Diego's Sign Skin: Reports: Dry, Intact, Ecchymosis Wound/Incisions: Reports: Healing Well, Dressing Dry and Intact, No Drainage. Denies: Erythema Neurological: Reports: No New Focal Deficit Psy/Mental Status: Reports: Alert, Normal Affect, Normal Mood
[2021-09-12] MEDS: Acetaminophen 325 MG Tab PO SCH ×2 (04:59→11:15)
[2021-09-12] MEDS: Nozin Nasal Sanitizer NASBOTH SCH (08:12)
[2021-09-12] MEDS: Citalopram 10 MG Tab PO SCH (08:12)
[2021-09-12] MEDS: Celecoxib 200 MG Cap PO SCH (08:12)
[2021-09-12] MEDS: Enoxaparin 30 MG/0.3 ML Syringe SUBCUT SCH (08:13)
[2021-09-12] MEDS: Pravastatin 20 MG Tab PO SCH (08:13)
[2021-09-12] MEDS: Docusate Sodium 100 MG Cap PO SCH (08:13)
--- NOTE | 2021-09-20 20:39 | OR ---
DATE OF PROCEDURE: 09/07/2021 SURGEON: Andrei Childs MD PREOPERATIVE DIAGNOSIS: Displaced left femoral neck fracture. POSTOPERATIVE DIAGNOSIS: Displaced left femoral neck fracture. PROCEDURE: Hemiarthroplasty, left hip using Thalia M/L taper stem size 10, 46 mm outer diameter bipolar cup and a +0 28 mm head. SUPPLIER QUALITY MANAGER: SILVIA Edmonds ANESTHESIA: Spinal with sedation. INDICATIONS: Saray is a very pleasant 86-year-old female, who sustained a fall resulting in a left femoral neck fracture. Fracture shows displacement and she was therefore taken to the operating room for hemiarthroplasty of the left hip. Risks, benefits, and potential complications were discussed with her. DESCRIPTION OF PROCEDURE: After adequate anesthesia was obtained, the patient was placed in lateral decubitus position and secured with the hip positioner. The left hip and leg were prepped and draped in sterile fashion. A longitudinal incision made over the greater trochanter, carried down through the subcutaneous tissues and hemostasis obtained with electrocautery. Tensor fascia split in line with its fibers and a Charnley retractor was placed. Short external rotators taken off the greater trochanter posteriorly and the hip capsule is divided releasing a small hematoma. Capsule was opened in a T-fashion. Femoral neck is recut and the femoral head and neck are removed. It was measured and a trial 46 mm cup was placed with good fit. A box osteotome was used to remove the lateral femoral neck cortex. Lateralizing reamers utilized. The canal was sequentially broached to a size 10. Trial reduction was done with the 46 outer diameter cup and a +0 neck length. This provided excellent stability in flexion, adduction, and internal rotation and full extension and apparent even limb lengths. The trials were removed and the hip was irrigated. M/L taper stem is press-fit into position and a trial reduction was once again done with a +0 neck length. The trials were removed. The bipolar head is assembled with a +0 28 mm head secured onto the Rivas taper. Hip was reduced and again taken through range of motion and found to be very stable. The hip was irrigated with pulse lavage. This was followed by a dilute Betadine solution which was left in place for 2-1/2 minutes and then irrigated with pulse lavage once again. Hip capsule was closed with #2 Ethibond. Short external rotators reattached to the greater trochanter with #2 Ethibond. Tensor fascia was closed in a running locking fashion and skin was closed with 2-0 Vicryl and 3-0 Monocryl. Steri-Strips were applied. Sterile dressing was placed. The patient tolerated the procedure well. There were no complications and taken from the operating room in stable condition. Andrei Childs MD /[id number]
== END 2021-09-12 11:58 | DRG 522 ==
LOC: JP.ED 23:24 → JP.MS 09-07 12:49
PROVIDERS: ADMIT Specialist; ATTEND Specialist
PROC: 0SRS0JA Replacement of Left Hip Joint, Femoral Surface with Synthetic Substitute, Uncemented, Open Approach (ICD-10-PCS; principal; 2021-09-07)
PROC: 3E0U33Z Introduction of Anti-inflammatory into Joints, Percutaneous Approach (ICD-10-PCS; 2021-09-11)
DX: S72.002A Fracture of unspecified part of neck of left femur, initial encounter for closed fracture (principal); W19.XXXA Unspecified fall, initial encounter; D64.9 Anemia, unspecified; M19.90 Unspecified osteoarthritis, unspecified site; M17.11 Unilateral primary osteoarthritis, right knee; E78.00 Pure hypercholesterolemia, unspecified; F41.9 Anxiety disorder, unspecified; Z20.822 Contact with and (suspected) exposure to COVID-19; Y92.009 Unspecified place in unspecified non-institutional (private) residence as the place of occurrence of the external cause; Z79.899 Other long term (current) drug therapy; Z85.3 Personal history of malignant neoplasm of breast; Z86.19 Personal history of other infectious and parasitic diseases
CPT/HCPCS: 36415; 51702; 72170; 72170-26; 73502-26-LT; 73502-LT; 80048; 85025; 85027; 93005; 96374; 96375; 97110-GP; 97116-GP; 97161-GP; 97165-GO; 97530-GP; 97535-GO; 97535-GP; 99285-25; A9270-GY; C1776; J0690; J1650; J1885; J2060; J2250; J2704; J3010; J7030; J7120; U0002

== ENCOUNTER 2021-10-26 22:12 | Emergency (ER) | payer MEDICARE | END 2021-10-27 00:59 | disposition home or self-care (01) | LOC: JP.ED 22:12 | DX: S20.212A Contusion of left front wall of thorax, initial encounter (principal); E78.00 Pure hypercholesterolemia, unspecified; M19.90 Unspecified osteoarthritis, unspecified site; Z79.82 Long term (current) use of aspirin; Z79.899 Other long term (current) drug therapy; W18.30XA Fall on same level, unspecified, initial encounter; Y93.01 Activity, walking, marching and hiking; Y92.000 Kitchen of unspecified non-institutional (private) residence as the place of occurrence of the external cause | CPT/HCPCS: 71250; 99283-25; 99285 ==

== ENCOUNTER 2022-07-26 08:13 | Day surgery (SDC) | payer MEDICARE ==
[2022-07-26] MEDS: Sodium Chloride 0.9% 10 ML Syringe FLUSH PRN (09:14)
== END 2022-07-26 10:40 | disposition home or self-care (01) ==
LOC: JP.SDS 08:13
PROVIDERS: ATTEND Ophthalmology
DX: H25.11 Age-related nuclear cataract, right eye (principal)
CPT/HCPCS: 66984; J3490; V2632

== ENCOUNTER 2022-08-09 08:06 | Day surgery (SDC) | payer MEDICARE ==
[2022-08-09] MEDS ORDERED: Sodium Chloride 0.9% 10 ML Syringe FLUSH PRN (09:00)
== END 2022-08-09 10:35 | disposition home or self-care (01) ==
LOC: JP.SDS 08:06
PROVIDERS: ATTEND Ophthalmology
DX: H25.12 Age-related nuclear cataract, left eye (principal)
CPT/HCPCS: 66984; J3490

== ENCOUNTER → 2022-10-02 | Day surgery (SDC) | payer MEDICARE ==
[~2022-10-02] MED LIST: Bacitracin Oint 1 GM U/D Packet ONE; Bupivacaine 0.5% 30 ML SDV ONE; Dextrose 5%-Lactated Ringers 1,000 ML IV SCH; Lidocaine 1% with EPINEPHrine 1:100,000 50 ML MDV ONE; Lidocaine 2% Viscous Solution 15 ML UD ONE; Lidocaine 4% Top Soln 50 ML Bottle ONE; Propofol 200 MG/20 ML SDV ONE; Sugammadex Sodium 200 MG/2 ML VIAL ONE; fentaNYL 100 MCG/2 ML SDV ONE
== END ==
LOC: JP.SDS 08:28
PROVIDERS: ATTEND Surgery
DX: J90 Pleural effusion, not elsewhere classified (principal); R91.8 Other nonspecific abnormal finding of lung field; E78.00 Pure hypercholesterolemia, unspecified; F41.9 Anxiety disorder, unspecified; Z79.899 Other long term (current) drug therapy; Z20.822 Contact with and (suspected) exposure to COVID-19
CPT/HCPCS: 10005; 31624; 32555; 39000; 71045; 76942; 82042; 82150; 82945; 83615; 83986; 84157; 84478; 87015; 87070; 87102; 87116; 87205; 87206; 87220; 88112; 88305; 89050; A9270; J2704; J3010; J3490; U0002

== ENCOUNTER 2022-10-25 11:30 | Inpatient (IN) | payer MEDICARE ==
[2022-10-25 13:42] LABS: ESTIMATED GFR 86 mL/min (>60)
[2022-10-25] MEDS ORDERED: Bacitracin Oint 1 GM U/D Packet TOP ONE (15:45)
[2022-10-25 17:26] LABS: CORONAVIRUS COVID-19 NAA NEGATIVE (NEGATIVE)
[2022-10-25] MEDS ORDERED: Magnesium Hydroxide 400 MG/5 ML Susp 30 ML Cup PO PRN (18:29)
[2022-10-25] MEDS ORDERED: Non-Formulary Medication 1 Each (Sennosides/Docusate Sodium [Senna-Docusate Sodium Tablet] PO PRN (18:29)
[2022-10-25] MEDS ORDERED: Ondansetron 4 MG/2 ML SDV IV PRN (18:29)
[2022-10-25] MEDS ORDERED: Acetaminophen 325 MG Tab PO PRN (18:29)
[2022-10-25] MEDS ORDERED: Ondansetron 4 MG Tab.DIS PO PRN (18:29)
[2022-10-25] MEDS ORDERED: Melatonin 3 MG Tab PO PRN (18:29)
[2022-10-25] MEDS: cefTRIAXone 1 GM in Sodium Chloride 0.9% 50 ML IV SCH (20:38)
[2022-10-25] MEDS: traZODone 50 MG Tab PO PRN (23:55)
[2022-10-26] MEDS: Citalopram 10 MG Tab PO SCH (08:39)
[2022-10-26] MEDS: Pravastatin 20 MG Tab PO SCH (08:39)
[2022-10-26] MEDS: Cholecalciferol (Vitamin D3) 25 MCG Tab PO SCH (08:40)
[2022-10-26] MEDS ORDERED: [UNRECOGNIZED DRUG - OTHER] PO SCH (09:00)
[2022-10-26] MEDS ORDERED: CALCIUM VITAMIN D PO SCH (09:00)
[2022-10-26] MEDS ORDERED: CALCIUM CARBONATE PO SCH (09:00)
[2022-10-26] MEDS ORDERED: VITAMIN D3 PO SCH (09:00)
[2022-10-26] MEDS: cefTRIAXone 1 GM in Sodium Chloride 0.9% 50 ML IV SCH (17:36)
[2022-10-27] MEDS: Citalopram 10 MG Tab PO SCH (08:51)
[2022-10-27] MEDS: Pravastatin 20 MG Tab PO SCH (08:51)
[2022-10-27] MEDS: Cholecalciferol (Vitamin D3) 25 MCG Tab PO SCH (08:52)
[2022-10-27] MEDS: Cephalexin 250 MG Cap PO SCH (21:09)
[2022-10-27] MEDS: traZODone 50 MG Tab PO PRN (22:52)
[2022-10-28] MEDS: Pravastatin 20 MG Tab PO SCH (09:31)
[2022-10-28] MEDS: Cephalexin 250 MG Cap PO SCH (09:32)
[2022-10-28] MEDS: Citalopram 10 MG Tab PO SCH (09:32)
[2022-10-28] MEDS: Cholecalciferol (Vitamin D3) 25 MCG Tab PO SCH (09:32)
== END 2022-10-28 13:40 | disposition home or self-care (01) | DRG 186 ==
LOC: JP.ED 11:30 → JP.MS 17:44 → OBSVTOIN 10-26 13:20
PROVIDERS: ADMIT Internal Medicine; ATTEND Internal Medicine
PROC: 0W9B3ZZ Drainage of Left Pleural Cavity, Percutaneous Approach (ICD-10-PCS; principal; 2022-10-25)
DX: J90 Pleural effusion, not elsewhere classified (principal); J96.01 Acute respiratory failure with hypoxia; N30.00 Acute cystitis without hematuria; J95.811 Postprocedural pneumothorax; J98.59 Other diseases of mediastinum, not elsewhere classified; F41.9 Anxiety disorder, unspecified; Z20.822 Contact with and (suspected) exposure to COVID-19; R22.2 Localized swelling, mass and lump, trunk; F03.90 Unspecified dementia, unspecified severity, without behavioral disturbance, psychotic disturbance, mood disturbance, and anxiety; Z96.642 Presence of left artificial hip joint; Z90.710 Acquired absence of both cervix and uterus; E78.00 Pure hypercholesterolemia, unspecified; Z79.899 Other long term (current) drug therapy
CPT/HCPCS: 0241U; 36415; 71045; 71046; 80053; 81001; 85025; 87086; 87088; 87186; 96365; 99222; 99232; 99238; 99284; 88112; 88305; 88341; 88342; 99285; A9270-GY; G0378; J0696

== ENCOUNTER 2022-11-02 09:27 | Emergency (ER) | payer MEDICARE | END 2022-11-02 14:19 | disposition home or self-care (01) | LOC: JP.ED 09:27 | DX: J94.2 Hemothorax (principal); E78.00 Pure hypercholesterolemia, unspecified | CPT/HCPCS: 71046; 71046-26; 99283; 99284 ==

== ENCOUNTER 2022-11-08 14:11 | Emergency (ER) | payer MEDICARE ==
[2022-11-08] MEDS ORDERED: fentaNYL 50 MCG/ML SDV IVPUSH ONE ×2 (17:20→20:16)
[2022-11-08] MEDS: Dextrose 5%-0.9% NaCl 1,000 ML IV SCH (20:31)
[2022-11-08] MEDS ORDERED: cefTRIAXone 1 GM in Sodium Chloride 0.9% 50 ML IV ONE (20:45)
[2022-11-08] MEDS ORDERED: Doxycycline 100 MG in Sodium Chloride 0.9% 100 ML IV ONE (20:46)
[2022-11-08] MEDS ORDERED: traZODone 50 MG Tab PO ONE (22:00)
[2022-11-08] MEDS: fentaNYL 50 MCG/ML SDV IVPUSH PRN (22:45)
[2022-11-09] MEDS: fentaNYL 50 MCG/ML SDV IVPUSH PRN ×4 (02:43→11:25)
[2022-11-09] MEDS ORDERED: Doxycycline 100 MG in Sodium Chloride 0.9% 100 ML IV SCH (08:30)
[2022-11-09] MEDS: Dextrose 5%-0.9% NaCl 1,000 ML IV SCH (10:15)
== END 2022-11-09 13:33 | disposition other institution (70) ==
LOC: JP.ED 14:11
DX: S72.001A Fracture of unspecified part of neck of right femur, initial encounter for closed fracture (principal); J18.9 Pneumonia, unspecified organism; J93.9 Pneumothorax, unspecified; Z20.822 Contact with and (suspected) exposure to COVID-19
CPT/HCPCS: 36415; 71045; 71045-26; 72192; 72192-26; 80048; 81001; 82803; 83880; 84145; 85025; 93005; 93010; 96361; 96365; 96366; 96367; 96375; 96376; 99285; 99285-25; J0696; J3010; J3490; U0002